=== PATIENT | female | born 1980 | race Caucasian/White ===

== ENCOUNTER 2017-07-07 10:30 | Outpatient (RCR) | payer MEDICAID, SELFPAY ==
--- NOTE | 2017-06-07 16:31 | HP.PTEVAL_ITS ---
Patient's Visit Information CELESTINO GREGORY is a 36 year old F referred to Physical Therapy by Rojelio ALEJANDRE with a diagnosis of Plantar Fascitis. Date of Evaluation: 06/07/17 Physical Therapist: Luo Argueta - Visit Plan Frequency: 2x /Week Duration: 4 Weeks Plan: Manual therapy, flexibility and US - Subjective Subjective: Patient reports that she has left plantar fascitits. She tried to ignore it and let is go but it kept getting worse. She finally made an apt to see the senior counsel commercial who has given her 3 cortisone injections and orthotics none of which have helped. The first injection lasted 1 month and the last one was 3 days of relief. She has burning pain all the time in the bottom of her heel. No radiating pain to the knee or toes. worst: 610 Agg: being on it and getting up after sitting for a long period of time. Does not wear night splints. Eases: laying down Best: 10. 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 Frustrated because her foot isn't better. did not give her any exercises. She works out at [employer] and does the TM and weights. PMHx: none Meds: inhaler, zyrtec no x-rays or MRI. Sleep: not disturbed - Objective Posture: FH, RS. Gait: slightly antalgic- decreased stance on the left LE. HR/ TR: mild discomfort with TR. Balance: SLS 10 sec. Observation: no pes planus. Palpation: tender along plantar fascia. ROM: DF: 10 degrees, PF: 60 degrees, Inver: 30 degrees, Ever: 10 degrees. Strength: Ankle: 5/5 Knee: 5/5. Special Test: Windlass Mechanism: positive. Flexibility: Gastroc/Soleus: mod Hamstring : mod - Goals Goal 1:: Patient will be I with HEP and progresion Goal Time Frame: 4-6 Weeks Goal 2:: Patinet will demo mild restriction where deficit in LE Goal Time Frame: 4-6 Weeks Goal 3:: Patient will report 0/10 for 1 week Goal Time Frame: 4-6 Weeks Goal 4:: Patient will SLS for 30 sec without LOB Goal Time Frame: 4-6 Weeks - Rehabilitation Potential Physical Therapy Diagnosis: Patient presents with hypomobility- she has decreased flexibility and increased pain along plantar fascia Rehabilitation Potential: Fair - Anticipated Interventions For the Purpose of:: To increase tolerance to activity/condition/position Therapeutic Exercise to Include: Strength training, Endurance training, Balance training, Agility training, Body mechanics, Postural training, Flexibilty training, Gait and locomotor training, Passive ROM, Active ROM For the Purpose of:: To improve muscle performance and motor function TENS: Yes Cryotherapy (ice pack, ice massage): Yes Thermo therapy (hot pack): Yes Ultrasound (thermal/non thermal): Yes For the Purpose of:: To decrease pain, To decrease swelling/inflammation Thank you for the opportunity to evaluate your patient. For Medicare and Medicare HMO plans, please review the plan of care and approve it. It will need to be FAXED BACK to us at [phone] for Medicare purposes. Please let me know if there are questions or concerns regarding this plan of care. Physician Signature: Date:
--- NOTE | 2017-07-07 10:46 | HP.PTDCSUM ---
HP - PT D/C Summary It has been my pleasure to treat CELESTINO GREGORY under orders from DR.JS RyanUPORACIO for the diagnosis of Plantar Fascitis for a total of 9 visit(s). Discharge Date: Please see the following information for a summary of their discharge status. - Subjective Subjective: Patient reports she started getting better when she was off her feet due to pneumonia. 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 -06/25. Took dog on a walk on Tuesday and then worked out on Tue and now the pain is back up. The foot was going numb when she was working out. - Pain L heel Pain Intensity (Out of 10): 3 - Objective Objective/Function: Return to MD for further evaluation secondary to subjective report - Goals Goal 1:: Patient will be I with HEP and progresion Goal Progress: Goal Met Goal 2:: Patinet will demo mild restriction where deficit in LE Goal Progress: Goal Met Goal 3:: Patient will report 0/10 for 1 week Goal Progress: Progressing Goal 4:: Patient will SLS for 30 sec without LOB Goal Progress: Goal Met - Plan Plan: Discharge - D/C Information If there are questions or concerns regarding this patient's physical therapy, please feel free to call me at [phone]. Thank you for the referral of this patient. Sincerely, Lou Argueta
== END 2017-07-07 19:00 | disposition home or self-care (01) ==
LOC: PT 10:30
PROVIDERS: Family Provider Family Medicine; PCP Family Medicine; Visit Provider Podiatrist Foot & Ankle Surgery
DX: M72.2 Plantar fascial fibromatosis (principal)
CPT/HCPCS: 97035; 97110; 97140; 97161; 97530

== ENCOUNTER 2018-02-02 10:54 | Emergency (ER) | payer MEDICAID, SELFPAY ==
[2018-02-02 10:54] VITALS: BP 119/85; PULSE 90; RESP 16; TEMP 35.6; O2SAT 99; BMI 26.6
--- NOTE | 2018-02-02 11:08 | EKG12_ITS ---
Test Reason : CHEST PRESSURE Blood Pressure : / mmHG Vent. Rate : 081 BPM Atrial Rate : 081 BPM P-R Int : 156 ms QRS Dur : 088 ms QT Int : 370 ms P-R-T Axes : 073 060 057 degrees QTc Int : 429 ms Normal sinus rhythm Normal ECG Confirmed by JANETT SULLIVAN, DARIAN ([id number]), make up editor MARICEL AGUILAR ([id number]) on 02/08/2018 9:12:44 AM Referred By: JARAD Confirmed By:DARIAN ROWLAND MD
[2018-02-02] MEDS: 0.9% Normal Saline 1,000 ML 1000 ML IV (11:34)
[2018-02-02 11:36] LABS: Absolute Lymphocyte Count 1.73 X10^3/ul (0.83-4.51); Absolute Neutrophil Count 2.8 X10^3/uL (2.0-7.7); Basophil# 0.04 X10^3/uL; Basophil% 0.7 % (0-1); Eosinophil# 0.08 X10^3/uL; Eosinophils% 1.5 % (0-5); Hemoglobin 13.2 g/dl (12.0-15.0); Lymphocyte # 1.73 X10^3/ul (4.0); Lymphocyte % 32.3 % (19-41); Mean Corpuscular Hgb 30.3 pg (27.0-32.0); Mean Platelet Vol. 9.7 fl (6.2-12.0); Monocyte# 0.71 X10^3/uL; Monocyte% 13.2 % (0-10); Neutrophil # 2.79 X10^3/uL (2.7-7.7); Neutrophil % 52.1 % (47-70); Platelet Count 194 K/mm3 (150-450); RBC Distribution Width CV 12.4 % (11.6-14.6); Red Blood Count 4.35 M/mm3 (4.2-5.4); White Blood Count 5.4 K/mm3 (4.4-11.0)
[2018-02-02 11:37] LABS: POSITIVE COUNT NO; POSITIVE DIFFERENTIAL NO; POSITIVE MORPHOLOGY NO
--- NOTE | 2018-02-02 11:40 | ED.DCSUM_ITS ---
- ER Visit Summary Date of Service: 02/02/18 Chief Complaint: [feel like I can't get enough air] History of Present Illness: The patient is a 37 F [that presents with sensation that she is not getting enough air. She denies any chest pain or dyspnea. No exertional symptoms. She has had similar symptoms on and off and has had evaluation from her primary provider. She is currently wearing a Holter monitor. She believes the symptoms may be from recently starting spironolactone that was prescribed to her off label use for acne. She has no cardiac history or risk factors. No DVT or PE history or risk factors. She overall appears well and nontoxic. No neurological symptoms or complaints. She has no other complaints.] Physical Examination: [General: The patient appears well and in no apparent distress. Patient is resting comfortably on cart. Skin: Warm, dry, no pallor noted. No rash. Head: Normocephalic, atraumatic Neck: Supple, nontender. Eye: PERRLA, EOMI ENT: Moist mucus membranes, pharynx within normal limits. Cardiovascular: Regular Rate and Rhythm, no gallups or rubs. Respiratory: Patient is in no distress, no accessory muscle use, lungs are clear to auscultation, no wheezing, rales or rhonchi Musculoskeletal: normal ROM, no deformity, no tenderness, no swelling. 2+ radial and DP pulses symmetric. GI: No tenderness to palpation, no masses appreciated. No rebound, guarding, or rigidity noted. Neurological: A&O, normal strength and sensation. Psychiatric: Cooperative] Test Results: [EKG of 81, no acute ischemic changes or arrhythmia, normal intervals, no heart blocks.] Emergency Department Course and Treatment: [She was given IV fluids here. Blood work overall unremarkable other than elevated d-dimer. I discussed CTA imaging and patient is agreeable. CTA of the chest shows no acute process. On re-evaluation at 1420 patient is resting comfortably and states she feels overall improved. Her vitals remained normal. I do not feel her presentation is consistent with ACS, PE, or dissection. Heart Score is 0. She was instructed to follow closely with her primary provider and return with any new or worsening symptoms. She will also inquire about the spironolactone she is taking. She states she has not taken a dose for several days. I instructed her to speak with her prescribing physician regarding this. Patient verbalized understanding and is agreeable. Patient discharged home in stable and improved condition.] Treatment Plan: [see above] Disposition: [discharge home, stable and improved condition] Impression: [Dyspnea, nonspecific] This note was generated with [employer] software. It may contain incorrect words, spelling, and punctuation that were not noted in review of the chart prior to signing ED Disposition - Plan for ED Patient: Disposition: Home or Assisted Living Chief Complaint: Chest Pain Instructions: ED Dyspnea Shortness of Breath Referrals: Pankaj Anaya MD [Primary Care Provider] -
--- NOTE | 2018-02-02 11:44 | ED.RN ---
ddimer 1.0 called from the lab. dr ortiz aware
[2018-02-02 11:49] LABS: Anion Gap 6 (5-15); BUN 11 mg/dL (7-18); BUN/Creat Ratio 11.1 RATIO (10-20); Calcium,Total 8.9 mg/dL (8.5-10.1); Chloride 108 mmol/L (98-107); Creatinine, Serum 0.99 mg/dL (0.55-1.02); EST Glomerular Filtration Rate 66 mL/min (>60); Est Glom Filt Rate - Afr Amer 80 mL/min (>60); Estimated Creatinine Clearance 79.73 ml/min; Glucose 71 mg/dL (74-106); Sodium Level 140 mmol/L (136-145)
--- NOTE | 2018-02-02 11:54 | CT_ITS ---
STUDY: CTA CHEST REASON FOR EXAM: Female, 37 years old. Chest pressure and shortness of breath. Elevated d-dimer. RADIATION DOSAGE (If Supplied By Facility): CTDIvol = ( 19.75 ) mGy, DLP = ( 483.90 ) mGycm TECHNIQUE: The examination was performed with the intravenous administration of 100 ml of Isovue 370 contrast material. Post-processing of the angiographic images was performed, with multiplanar reformation and 3D reconstruction. Individualized dose optimization techniques were used for this CT. COMPARISON: None. FINDINGS: Normal enhancement of the main pulmonary artery and right and left pulmonary arteries. Normal enhancement of the bilateral peripheral pulmonary arteries. There is no demonstrated pulmonary embolism. Normal thoracic aorta and visualized great vessels. There is no demonstrated aortic dissection. Normal heart and pericardium. Normal mediastinum. Normal hilar regions. Normal visualized trachea and bronchi. The lungs are well expanded. Minimal degree of increased markings along the dependent portions of both lower lobes suggestive of atelectasis. Normal pleura. Normal chest wall structures. Normal osseous structures. Small hiatal hernia. CT/CTA Chest W/WO Contrast IMPRESSION: Normal CTA chest examination, without a demonstrated pulmonary embolism or arterial dissection. Findings suggestive of minimal bibasilar atelectasis. Electronically Signed: Maurice Dover MD at 13:53 EDT Tel [phone], Service support ,
[2018-02-02 12:41] LABS: Internal QC Validated? YES +Cl - CLEAR BKGD; Pregnancy, Urine Negative Negative
[2018-02-02 14:22] VITALS: BP 124/87; PULSE 89; RESP 18; O2SAT 97
[2018-02-02 14:43] VITALS: BP 121/80; PULSE 70; RESP 16; O2SAT 98
== END 2018-02-02 14:44 | disposition home or self-care (01) ==
PROVIDERS: Emergency Provider Emergency Medicine; Family Provider Family Medicine; PCP Family Medicine
DX: R06.00 Dyspnea, unspecified (principal); R74.8 Abnormal levels of other serum enzymes; J45.909 Unspecified asthma, uncomplicated; F32.9 Major depressive disorder, single episode, unspecified; L70.9 Acne, unspecified; E66.9 Obesity, unspecified; Z79.899 Other long term (current) drug therapy
CPT/HCPCS: 71275; 80048; 81025; 84484; 85025; 85379; 93005; 96360; 99284; J7030; Q9967; A4216

== ENCOUNTER 2018-07-24 08:56 | Emergency (ER) | payer MEDICAID, SELFPAY ==
[2018-07-24 08:58] VITALS: BP 118/80; PULSE 104; RESP 18; TEMP 36.9; O2SAT 95; BMI 24.5
[2018-07-24 09:09] VITALS: BP 144/97; O2SAT 96
--- NOTE | 2018-07-24 09:18 | ED.VISSUMM ---
- ER Visit Summary Date of Service: 07/24/18 Chief Complaint: Cough History of Present Illness: The patient is a 38 F who presents emergency department shortness of breath and cough. Patient states that on Tuesday she was diagnosed with bronchitis through her primary care physician. She was placed on doxycycline tapering dose of prednisone and Tylenol with codeine. In addition to that therapy she is also using her inhalers consisting of albuterol and Brio. The patient states that she feels worse. She notes generalized myalgias. Continued cough and shortness of breath. Cough is been nonproductive. No known fevers. She has a history of asthma and depression. Physical Examination: Afebrile vital signs are stable Gen: Well-nourished well-developed Head: Normocephalic atraumatic Eyes: Perrl EOMI ENT: TMs clear nasal congestion and rhinorrhea moist mucous membranes Neck: Supple no lymphadenopathy no JVD nontender CVS: Regular rate rhythm no murmurs normal S1-S2 Respiratory: No distress clear to auscultation bilaterally chest nontender Abdomen: Soft nontender nondistended normal bowel sounds no masses Back: Nontender Extremity: Nontender no edema Skin: Normal color no rash Neuro: alert orientated ?3 CN II-XII intact normal strength sensation reflexes gait cerebellar Psych: Normal affect normal mood Test Results: Chest x-ray and influenza swab were obtained. Chest x-ray was negative for infiltrate. Influenza was positive for a Emergency Department Course and Treatment: Patient is out of the window for Tamiflu. I would recommend continued supportive care fever control and oral hydration. Impression: 1. Influenza A This note was generated with [employer] dictation software. It may contain incorrect words, spelling, and punctuation that were not noted in review of the chart prior to signing ED Disposition - Plan for ED Patient: Disposition: Home or Assisted Living Instructions: ED Flu Referrals: Pankaj Anaya MD [Primary Care Provider] - As Needed
--- NOTE | 2018-07-24 09:43 | RAD_ITS ---
STUDY: X-RAY CHEST REASON FOR EXAM: Female, 38 years old. Asthma. 4 day history of diagnosis of bronchitis. TECHNIQUE: PA and lateral views of the chest. COMPARISON: None. FINDINGS: Hyperinflation. Scattered calcified granulomas. There is no demonstrated pleural abnormality. Normal size heart. Calcified bilateral hilar lymph nodes. Normal visualized pulmonary arteries. Normal visualized aortic arch and descending thoracic aorta. Normal visualized thoracic spine. Normal visualized ribs, clavicles, and shoulders. There is no demonstrated abnormality of the visualized soft tissue structures of the upper abdomen. RAD/Chest PA and Lateral IMPRESSION: Hyperinflation. The lungs are clear. Electronically Signed: Maurice Dover, at 10:22 EDT , Service support ,
[2018-07-24 10:19] VITALS: BP 143/95; PULSE 87; RESP 17; O2SAT 96
--- NOTE | 2018-07-24 10:20 | ED.RN ---
DISCHARGE INSTRUCTIONS GIVEN TO AND REVIEWED WITH PATIENT, PATIENT DENIES QUESTIONS OR CONCERNS AND VOICES UNDERSTANDING OF DISCHARGE INSTRUCTIONS. PT AMBULATES OUT OF ROOM WITHOUT DIFFICULTY.
== END 2018-07-24 10:20 | disposition home or self-care (01) ==
PROVIDERS: Emergency Provider Emergency Medicine; Family Provider Family Medicine; PCP Family Medicine
DX: J11.1 Influenza due to unidentified influenza virus with other respiratory manifestations (principal); J45.909 Unspecified asthma, uncomplicated; F32.9 Major depressive disorder, single episode, unspecified; Z79.899 Other long term (current) drug therapy
CPT/HCPCS: 71046; 87804; 99282

== ENCOUNTER 2019-03-12 17:01 | Emergency (ER) | payer MEDICAID, SELFPAY ==
[2019-03-12 17:02] VITALS: BP 144/98; PULSE 101; RESP 18; TEMP 36.8; O2SAT 97; BMI 21.4
[2019-03-12 17:15] VITALS: BP 135/106; PULSE 113; RESP 16; TEMP 36.8; O2SAT 98
--- NOTE | 2019-03-12 17:29 | CT_ITS ---
STUDY: CT ABDOMEN AND PELVIS WITH CONTRAST REASON FOR EXAM: Female, 38 years old. Epigastric pain RADIATION DOSAGE (If Supplied By Facility): CTDIvol = ( 10.97 ) mGy, DLP = ( 435.97 ) mGycm TECHNIQUE: CT images were obtained from the dome of the diaphragm to the symphysis pubis without oral contrast. IV/Oral Isovue 300 100ml was administered. Sagittal and coronal images were reconstructed. Individualized dose optimization techniques were used for this CT. COMPARISON: None. FINDINGS: The visualized lung bases are unremarkable. The visualized portions of the heart are within normal limits. Normal liver. Normal gallbladder and extrahepatic biliary system. Normal spleen. Normal pancreas. Normal bilateral adrenal glands. Normal right kidney. Normal left kidney. Normal visualized stomach. Normal small intestine. Normal colon. The appendix is visualized and appears normal. Normal abdominal aorta. Normal inferior vena cava. Normal retroperitoneum. Normal urinary bladder. Uterus is resected. Normal abdominal wall. Normal osseous structures. There is a bone island in the inferior L3. CT/Abdomen/Pelvis WITH Contrast IMPRESSION: Normal enhanced CT of the abdomen and pelvis. Electronically Signed: Rahul Neely, at 20:51 EDT Tel , Service support ,
--- NOTE | 2019-03-12 17:31 | ED.DCSUM_ITS ---
History of Present Illness Chief Complaint: Abd Pain Informant: Patient Onset: Days - 3 Narrative: Presents with abdominal pain started Alex evening. States started on left lower side however radiated up to her mid abdomen and epigastric region over the last couple days. Nausea without vomiting. She had one loose stool yesterday. No bloody stools. States has chills. History of cholecystectomy year ago at [facility]. History of hysterectomy. She is on reflux medications. No previous similar symptoms in the past. No urinary symptoms. Prior similar symptoms: No Past Medical History - Allergies and Home Meds Allergies/Adverse Reactions: Allergies cefaclor Allergy (Verified 03/12/19 17:05) Rash Sulfa (Sulfonamide Antibiotics) Adverse Reaction (Verified 03/12/19 17:05) Nausea/Vom/Diarrhea Primary Care Physician: Pankaj Anaya MD [Primary Care Provider] - Smoking Status: Never smoker Review of Systems General: Reports: Chills. Denies: Fever, Sweats Eyes: Denies: Visual changes - bilaterally, Diplopia ENT: Denies: Rhinorrhea, Sore throat Cardiovascular: Denies: Chest pain, Palpitations Respiratory: Denies: Dyspnea, Cough, Dyspnea on exertion Gastrointestinal: Denies: Abdominal pain, Nausea, Vomiting, Diarrhea, Melena, Hematochezia Genitourinary: Denies: Dysuria, Hematuria, Frequency Musculoskeletal: Denies: Back pain, Extremity Pain Skin: Denies: Rash, Wounds Neurological: Denies: Headache, Weakness, Numbness Physical Exam Vital Signs/Narrative: Vital Signs Temp Pulse Resp BP Pulse Ox 03/12/19 17:15 98.3 F 113 H 16 135/106 H 98 03/12/19 17:02 98.3 F 101 H 18 144/98 H 97 Inital Vital Signs reviewed: Yes General: Well nourished, Well developed, - - Uncomfortable Head: Normocephalic, Atraumatic Eyes: Perrl, EOMI ENT: Moist mucous membranes, No rhinorrhea Neck: Supple, Nontender Cardiovascular: Regular rate, Regular rhythm, No murmurs Respiratory: No distress, CTA bilaterally, Chest nontender Abdomen: Soft, Nondistended, Normal bowel sounds, - - Tender palpation epigastric along with suprapubic along with mild left lower quadrant there is no guarding or rebound. Back: Nontender, Normal Inspection Extremities: Nontender, No edema Skin: Normal color, No rash Neurological: Alert, Oriented x3, Cranial nerves II-XII grossly intact, Normal Strength, Normal Sensation Psychological: Normal affect, Normal Mood Diagnostic/Tx/Re-eval Abnormal Lab Results 03/12/19 03/12/19 03/12/19 17:32 17:32 17:45 WBC 6.2 RBC 4.53 Hgb 13.5 Hct 42.4 MCV 93.6 MCH 29.8 MCHC 31.8 L RDW Std Deviation 41.0 RDW Coeff of Samina 11.9 Plt Count 189 MPV 10.2 Immature Gran % (Auto) 0.300 Neut % (Auto) 54.3 Lymph % (Auto) 34.1 [place] % (Auto) 9.3 Eos % (Auto) 1.4 Baso % (Auto) 0.6 Absolute Neuts (auto) 3.4 Absolute Lymphs (auto) 2.13 Nucleated RBC % 0 Sodium 141 Potassium 3.8 Chloride 109 H Carbon Dioxide 28.0 Anion Gap 4 L BUN 8 Creatinine 0.86 Estim Creat Clear Calc 90.29 Est GFR (MDRD) Af Amer 94 Est GFR (MDRD) Non-Af 77 BUN/Creatinine Ratio 9.3 L Glucose 89 Calcium 8.9 Total Bilirubin 0.30 AST 11 L ALT 17 Alkaline Phosphatase 66 Total Protein 7.0 Albumin 3.6 Globulin 3.4 Albumin/Globulin Ratio 1.1 Lipase 100 Urine Color Yellow Urine Clarity Clear Urine pH 6.0 Ur Specific [place] 1.010 Urine Protein Negative Urine Glucose (UA) Normal Urine Ketones Negative Urine Occult Blood Negative Urine Nitrite Negative Urine Bilirubin Negative Urine Urobilinogen Normal Ur Leukocyte Esterase Negative Urine RBC 0 SEEN Urine WBC 0 SEEN Ur Squamous Epith Cells 0-5 SEEN Urine Bacteria 0 SEEN Urine Mucus 0 SEEN Clinical Impression(s) from Imaging Studies Abdomen/Pelvis CT 03/12/19 17:29 IMPRESSION: Normal enhanced CT of the abdomen and pelvis. Electronically Signed: Rahul Neely, at 20:51 EDT Tel , Service support , - Medical Decision Making Patient diffuse tenderness more lower in epigastric region. Treated with Zofran fentanyl IV fluids. Require additional fentanyl during work-up. Abdominal labs and urine all normal. Contrast CT abdomen pelvis also negative. Reevaluation was still uncomfortable I treated her with Levsin and GI cocktail which improved her symptoms. She denies any melena. She reports endoscopies have been performed upper and lower a couple years ago. She is on reflux medicines. We will add Carafate for 2 weeks. Will use as needed Levsin. She will follow-up as an outpatient. All questions were answered. ED Disposition - Plan for ED Patient: Disposition: Home or Assisted Living Diagnosis: Gastritis, Abdominal pain Instructions: ABDOMINAL PAIN, Unknown Cause, (Female), GASTRITIS vs. ULCER Prescriptions: Sucralfate [Carafate] 1 gm PO 4X/DAY #60 tablet Hyoscyamine Sulfate 0.125 mg SL Q6H PRN PRN #12 tab.subl PRN Reason: abdominal pain Referrals: Pankaj Anaya MD [Primary Care Provider] - 3-5 Days if not improving Additional Instructions: Normal abdominal labs. Normal CT scan abdomen pelvis with IV and oral contrast. Take medications as prescribed. Follow-up with your doctor.
[2019-03-12] MEDS: 0.9% Normal Saline 1,000 ML 125 ML IV (17:42)
[2019-03-12] MEDS: Ondansetron 4 MG/2 ML Vial IV (17:42)
[2019-03-12] MEDS: fentaNYL 100 MCG/2 ML Ampul 25 MCG IV ×2 (17:43→19:07)
[2019-03-12 18:17] LABS: ALB/GLOB Ratio 1.1 RATIO (0.9-2.4); AST(SGOT) 11 U/L (15-37); Alanine Aminotransfer ALT/SGPT 17 U/L (13-56); Albumin, Serum 3.6 g/dL (3.2-5.0); Alkaline Phosphatase 66 U/L (45-117); Anion Gap 4 (5-15); BUN 8 mg/dL (7-18); BUN/Creat Ratio 9.3 RATIO (10-20); Calcium,Total 8.9 mg/dL (8.5-10.1); Chloride 109 mmol/L (98-107); Creatinine, Serum 0.86 mg/dL (0.55-1.02); EST Glomerular Filtration Rate 77 mL/min (>60); Est Glom Filt Rate - Afr Amer 94 mL/min (>60); Estimated Creatinine Clearance 90.29 ml/min; Globulin 3.4 g/dL (2.2-4.2); Glucose 89 mg/dL (74-106); Lipase 100 U/L (73-393); Potassium 3.8 mmol/L (3.5-5.1); Sodium Level 141 mmol/L (136-145)
[2019-03-12 18:18] LABS: Absolute Lymphocyte Count 2.13 X10^3/uL (0.83-4.51); Absolute Neutrophil Count 3.4 X10^3/uL (2.0-7.7); Basophil# 0.04 X10^3/uL; Basophil% 0.6 % (0-1); Eosinophil# 0.09 X10^3/uL; Eosinophils% 1.4 % (0-5); Hematocrit 42.4 % (37-47); Hemoglobin 13.5 g/dL (12.0-15.0); Lymphocyte # 2.13 X10^3/ul (4.0); Lymphocyte % 34.1 % (19-41); Mean Corp Hgb Conc 31.8 g/dL (32-36); Mean Corpuscular Hgb 29.8 pg (27.0-32.0); Mean Corpuscular Volume 93.6 fL (81-99); Mean Platelet Vol. 10.2 fl (6.2-12.0); Monocyte# 0.58 X10^3/uL; Monocyte% 9.3 % (0-10); NRBC Flagged by Analyzer 0 % (0-5); Neutrophil # 3.38 X10^3/uL (2.7-7.7); Neutrophil % 54.3 % (47-70); Platelet Count 189 K/mm3 (150-450); RBC Distribution Width CV 11.9 % (11.6-14.6); Red Blood Count 4.53 M/mm3 (4.2-5.4); White Blood Count 6.2 K/mm3 (4.4-11.0)
[2019-03-12 19:08] LABS: Bacteria 0 SEEN /hpf (None Seen); Mucous, Urine 0 SEEN /hpf (<or=2+); Red Blood Cells-Urine 0 SEEN /hpf (0-5); White Blood Cells 0 SEEN /hpf (0-5)
[2019-03-12 19:09] VITALS: RESP 16
[2019-03-12 19:18] LABS: Color, Urine Yellow (Yellow); Glucose, Dipstick Normal (Normal); Ketone-Dipstick Negative (Negative); Leukocyte Esterase-Dipstick Negative /ul (Negative); Nitrite-Dipstick Negative (Negative); Occult Blood-Urine Negative /ul (Negative); Protein-Dipstick Negative (Negative); Urine Bilirubin Dipstick Negative (Negative); Urine Clarity Clear (Clear); Urine Urobilinogen Normal (Normal)
[2019-03-12 19:28] LABS: Squamous Epithelial Cells - UA 0-5 SEEN /hpf (5-10)
[2019-03-12] MEDS: Mag Hydrox/Al Hydrox/Simeth 30 ML UDC PO (21:26)
[2019-03-12 21:28] VITALS: BP 118/85; PULSE 78; RESP 16; O2SAT 98
[2019-03-12] MEDS: Hyoscyamine Sulfate 0.125 MG Tablet SUBLINGUAL (21:34)
[2019-03-12 22:15] VITALS: RESP 16
== END 2019-03-12 22:15 | disposition home or self-care (01) ==
PROVIDERS: Emergency Provider Emergency Medicine; Family Provider Family Medicine; PCP Family Medicine
DX: K29.70 Gastritis, unspecified, without bleeding (principal)
CPT/HCPCS: 74177; 80053; 81001; 83690; 85025; 96361; 96374; 96375; 96376; 99284; J7030; Q9967; A4216; J2405

== ENCOUNTER 2019-11-08 14:46 | Emergency (ER) | payer MEDICAID, SELFPAY ==
[2019-11-08 14:48] VITALS: BP 120/88; PULSE 90; PULSE 92; RESP 17; RESP 18; TEMP 36.9; O2SAT 97; O2SAT 98; BMI 24.2
[2019-11-08 15:05] VITALS: BP 123/85; PULSE 98; RESP 16; O2SAT 96
--- NOTE | 2019-11-08 15:05 | EKG12_ITS ---
Test Reason : NEURO SX Blood Pressure : / mmHG Vent. Rate : 092 BPM Atrial Rate : 092 BPM P-R Int : 148 ms QRS Dur : 084 ms QT Int : 374 ms P-R-T Axes : 063 049 050 degrees QTc Int : 462 ms Normal sinus rhythm Normal ECG Confirmed by LILIAM SULLIVAN, CLEM ([id number]), story editor TATUM IRIZARRY ([id number]) on 11/13/2019 11:13:04 AM Referred By: MICHELLE Confirmed By:CLEM RICKETTS MD
--- NOTE | 2019-11-08 15:05 | MRI_ITS ---
STUDY: MRI BRAIN WITHOUT CONTRAST REASON FOR EXAM: Female, 39 years old. VERTIGO, LT ARM TINGLING, HEAD PRESSURE TECHNIQUE: Standardized multiplanar fat and water weighted pulse sequences were obtained. COMPARISON: None. FINDINGS: Normal size of the ventricles and extra-axial spaces for the patient''s age. Normal white matter tracts of the supratentorial brain. There is no evidence for recent intracranial ischemia or other cause of cytotoxic edema on diffusion weighted imaging (DWI). Normal T2* images of the brain without demonstrated susceptibility artifact. There is no demonstrated hemosiderin stain. Normal bilateral basal ganglia. Normal thalami. There is no extra-axial fluid accumulation. Normal flow voids within the major intracranial circulation suggesting patency by spin echo criteria. Normal sella turcica, pituitary gland, infundibular stalk, optic chiasm and hypothalamus. Normal tectal plate and pineal gland. Normal midbrain, mamie and medulla. Normal cerebellum. Normal basal cisterns. Normal bilateral temporal bones. Normal bilateral internal auditory canals. No demonstrated orbital abnormality, within the constraints of a routine brain study. Normal visualized paranasal sinuses. Normal calvarium and skull base. Normal visualized soft tissue structures. Normal visualized upper cervical spine. MRI/Brain without Contrast IMPRESSION: Normal unenhanced MRI of the brain. Electronically Signed: Alfred Sawant MD at 16:27 EDT Tel , Service support ,
[2019-11-08 15:06] VITALS: BMI 24.0
--- NOTE | 2019-11-08 15:07 | CT_ITS ---
STUDY: CTA HEAD AND NECK WITH CONTRAST REASON FOR EXAM: Female, 39 years old. ACUTE NEURO DEFICIT, CONCERN FOR STROKE, DIZZINESS RADIATION DOSAGE (If Supplied By Facility): CTDIvol = ( 27.58 ) mGy, DLP = ( 1365.36 ) mGycm TECHNIQUE: CT angiography was performed with a multi-detector CT scanner. Data acquisition was obtained from the skull base through the vertex following intravenous administration of Isovue 370 100ml. MIP images were reconstructed from the axial data set. Post-processing of the angiographic images was performed, with multiplanar reformation and 3D reconstruction. Individualized dose optimization techniques were used for this CT. COMPARISON: No relevant priors. FINDINGS: Normal bilateral petrous carotid arteries. Normal right cavernous carotid artery with a normal supraclinoid bifurcation. Normal left cavernous carotid artery with a normal supraclinoid bifurcation. Normal right A1 segments of the anterior cerebral artery. Normal left A1 segments of the anterior cerebral artery. Normal intact anterior communicating artery (ACOM). Normal bilateral A2 segments of the anterior cerebral arteries. Normal right M1 and M2 segments of the middle cerebral arteries, with a normal M1 bifurcation. Normal left M1 and M2 segments of the middle cerebral arteries, with a normal M1 bifurcation. Normal right posterior communicating artery (PCOM). Normal left posterior communicating artery (PCOM). Normal bilateral vertebral arteries. Normal basilar artery with a normal basilar bifurcation. The visualized bilateral superior cerebellar (SCA) arteries are normal. Normal bilateral P1, P2 and visualized P3 segments of the posterior cerebral arteries. There is no demonstrated aneurysm of the alutiiq of [place]. There is no demonstrated abnormality of the visualized brain. AORTIC ARCH: Normal visualized aortic arch. Normal origins of the brachiocephalic, left common carotid, and left subclavian arteries. RIGHT CAROTID ARTERIES: Normal right common carotid artery (CCA). Normal right common carotid bulb. Normal origin of the right internal carotid (ICA) artery without a hemodynamically significant stenosis. Normal visualized cervical portion of the right internal carotid artery. Normal origin of the right external carotid artery (ECA). LEFT CAROTID ARTERIES: Normal left common carotid artery (CCA). Normal left common carotid bulb. Normal origin of the left internal carotid (ICA) artery without a hemodynamically significant stenosis. Normal visualized cervical portion of the left internal carotid artery. Normal origin of the left external carotid artery (ECA). VERTEBRAL ARTERIES: Normal bilateral vertebral arteries. CT/CTA Head AND Neck W/ Contrast IMPRESSION: Normal CTA Head and neck with contrast. Electronically Signed: Alfred Sawant MD at 16:34 EDT Tel , Service support ,
[2019-11-08] MEDS: LORazepam 2 MG/ML Syringe 1 MG IV (15:14)
--- NOTE | 2019-11-08 15:26 | ED.RN ---
mri hx filled out. nih a 1 for paresthesia lt arm and leg. no other deficit obs.
[2019-11-08 15:40] LABS: Absolute Lymphocyte Count 1.62 X10^3/uL (0.83-4.51); Absolute Neutrophil Count 3.6 X10^3/uL (2.0-7.7); Basophil# 0.07 X10^3/uL; Eosinophil# 1.11 X10^3/uL; Eosinophils% 15.7 % (0-5); Hemoglobin 13.2 g/dL (12.0-15.0); Lymphocyte # 1.62 X10^3/ul (4.0); Lymphocyte % 22.9 % (19-41); Mean Corp Hgb Conc 32.2 g/dL (32-36); Mean Corpuscular Hgb 31.4 pg (27.0-32.0); Mean Corpuscular Volume 97.6 fL (81-99); Mean Platelet Vol. 9.6 fl (6.2-12.0); Monocyte# 0.69 X10^3/uL; Monocyte% 9.8 % (0-10); NRBC Flagged by Analyzer 0 % (0-5); Neutrophil # 3.55 X10^3/uL (2.7-7.7); Neutrophil % 50.3 % (47-70); Platelet Count 195 K/mm3 (150-450); RBC Distribution Width CV 12.3 % (11.6-14.6); RBC Distribution Width SD 43.8 fl (35.1-43.9); White Blood Count 7.1 K/mm3 (4.4-11.0)
[2019-11-08 15:46] LABS: International Normalized Ratio 1.1
[2019-11-08 15:48] LABS: Partial Thromboplast Time 27.8 Seconds (24.1-36.2)
[2019-11-08 15:57] LABS: Anion Gap 5 (5-15); BUN 19 mg/dL (7-18); BUN/Creat Ratio 20.5 RATIO (10-20); Calcium,Total 8.7 mg/dL (8.5-10.1); Chloride 105 mmol/L (98-107); Creatinine, Serum 0.93 mg/dL (0.55-1.02); EST Glomerular Filtration Rate 71 mL/min (>60); Est Glom Filt Rate - Afr Amer 86 mL/min (>60); Estimated Creatinine Clearance 83.19 ml/min; Glucose 107 mg/dL (74-106); Sodium Level 138 mmol/L (136-145)
[2019-11-08 16:05] VITALS: BP 116/78; PULSE 91; RESP 16; O2SAT 96
[2019-11-08 16:30] VITALS: BP 116/78; PULSE 95; RESP 16; O2SAT 95
[2019-11-08 16:38] LABS: Bacteria 0 SEEN /hpf (None Seen); Mucous, Urine 0 SEEN /hpf (<or=2+)
[2019-11-08 16:40] LABS: Color, Urine Yellow (Yellow); Glucose, Dipstick Normal (Normal); Ketone-Dipstick Negative (Negative); Leukocyte Esterase-Dipstick Negative /ul (Negative); Nitrite-Dipstick Negative (Negative); Occult Blood-Urine Negative /ul (Negative); Protein-Dipstick Negative (Negative); Urine Bilirubin Dipstick Negative (Negative); Urine Clarity Sl. Cloudy (Clear); Urine Urobilinogen Normal (Normal)
[2019-11-08 16:41] LABS: Bedside Glucose 90 mg/dL (70-110)
[2019-11-08 16:59] LABS: Squamous Epithelial Cells - UA 0-5 SEEN /hpf (5-10)
[2019-11-08 17:01] LABS: Red Blood Cells-Urine 0-5 SEEN /hpf (0-5)
[2019-11-08 17:02] LABS: White Blood Cells 0-5 SEEN /hpf (0-5)
--- NOTE | 2019-11-08 17:09 | ED.VISSUMM ---
- ER Visit Summary Date of Service: 11/08/19 Chief Complaint: Vertigo and left arm numbness History of Present Illness: The patient is a [address] Vincent Ruiz. She reports that she was fine when she went to bed last night. However, 730 this morning she woke up with double vision and vertigo. This lasted approximately 2-1/2 hours and then resolved. She denies any ringing or roaring in her ears. No ear pain. No change in her hearing. No difficulty talking. No slurred speech. Patient reports that approximate 1230 she noticed that her left arm and left leg felt weird. She denies any other neurologic symptoms. She questions if this may be due to changing the dose of her duloxetine. Physical Examination: Vitals: Stable. Afebrile. General: Well-nourished and well-developed. Head: Normocephalic atraumatic. Neck: Supple, no lymphadenopathy. No JVD. Nontender. Cardiovascular: Regular rate and rhythm. No murmurs. Respiratory: No respiratory distress. Clear to auscultation bilaterally. Abdominal: Soft, nontender, nondistended, normal bowel sounds. No guarding, rebound, or peritoneal signs. Back: Nontender. Extremities: Nontender, no edema. Skin: Normal color, no rash. Neurologic: Alert and oriented ?3. Cranial nerves II through XII are intact. Normal strength. Subjective decrease sensation to light touch left arm and left leg giving an NIH scale of 1. Psych: Normal affect. Test Results: EKG is sinus at [address] changes and artifact. Troponin is negative. UA is normal. Coags are normal. Chem-7 shows a BUN of 19 and glucose 107. CBC shows eosinophils of 16. Clinical Impression(s) from Imaging Studies Brain MRI 11/08/19 15:05 IMPRESSION: Normal unenhanced MRI of the brain. Electronically Signed: Alfred Sawant MD at 16:27 EDT Tel , Service support , Head/Neck CTA 11/08/19 15:07 IMPRESSION: Normal CTA Head and neck with contrast. Electronically Signed: Alfred Sawant MD at 16:34 EDT Tel , Service support , Emergency Department Course and Treatment: Patient's NIH scale is 1 and her symptoms have improved. Also she woke with symptoms. She is not a TPA candidate. Treatment Plan: With a normal MRI I feel the patient is suitable candidate for further outpatient evaluation. She will be discharged with Antivert and Zofran in case the vertigo returns. She will be discharged with instructions to follow-up with Dr. Borjas as soon as possible. Return to the emergency department for any worsening symptoms. Disposition: To home in improved and stable condition. Impression: 1 1. Vertigo, resolved. 2. Paresthesias left upper/lower extremities, uncertain cause. This note was generated with [employer] dictation software. It may contain incorrect words, spelling, and punctuation that were not noted in review of the chart prior to signing ED Disposition - Plan for ED Patient: Disposition: Home or Assisted Living Instructions: ED Dizziness [facility] Prescriptions: Meclizine HCl [Antivert] 25 mg PO 4X/DAY PRN PRN #20 tab PRN Reason: Dizziness Prescription Printed Ondansetron [Zofran Odt] 4 mg PO Q8H PRN PRN #10 tab PRN Reason: Nausea Prescription Printed Referrals: Eric Richmond MD [STAFF PHYSICIAN] - 5-7 Days Pankaj Anaya MD [Primary Care Provider] -
[2019-11-08 18:28] VITALS: BP 124/98; PULSE 92; RESP 16; O2SAT 95
== END 2019-11-08 18:29 | disposition home or self-care (01) ==
PROVIDERS: Emergency Provider Emergency Medicine; PCP Family Medicine
DX: R42 Dizziness and giddiness (principal); H53.2 Diplopia; R20.0 Anesthesia of skin; J45.909 Unspecified asthma, uncomplicated; F32.9 Major depressive disorder, single episode, unspecified; Z79.899 Other long term (current) drug therapy
CPT/HCPCS: 70496; 70498; 70551; 80048; 81001; 82962; 84484; 85025; 85610; 85730; 93005; 96374; 99285; Q9967; A4216

== ENCOUNTER 2020-01-07 02:13 | Observation (INO) | payer MEDICAID, SELFPAY ==
[2020-01-07] VITALS (14 sets, daily range): BP systolic 115–141; BP diastolic 67–99; PULSE 87–107; RESP 16–21; TEMP 36.2–37.1; O2SAT 94–100; BMI 24.5; BMI 23.6
--- NOTE | 2020-01-07 02:46 | EKG12_ITS ---
Test Reason : OD Blood Pressure : / mmHG Vent. Rate : 080 BPM Atrial Rate : 080 BPM P-R Int : 160 ms QRS Dur : 092 ms QT Int : 406 ms P-R-T Axes : 070 071 056 degrees QTc Int : 468 ms Normal sinus rhythm Normal ECG When compared with ECG of 07-JAN-2020 03:06, No significant change was found Confirmed by BRIGITTE LU ([id number]), script editor ROSARIO MURRAY ([id number]) on 01/10/2020 9:12:33 AM Referred By: MAX Confirmed By:BRIGITTE LU
[2020-01-07 03:01] LABS: Absolute Lymphocyte Count 2.01 X10^3/uL (0.83-4.51); Absolute Neutrophil Count 3.9 X10^3/uL (2.0-7.7); Basophil# 0.06 X10^3/uL; Basophil% 0.9 % (0-1); Eosinophil# 0.19 X10^3/uL; Eosinophils% 2.7 % (0-5); Hematocrit 41.2 % (37-47); Hemoglobin 13.7 g/dL (12.0-15.0); Lymphocyte # 2.01 X10^3/ul (4.0); Mean Corp Hgb Conc 33.3 g/dL (32-36); Mean Corpuscular Hgb 31.8 pg (27.0-32.0); Mean Corpuscular Volume 95.6 fL (81-99); Mean Platelet Vol. 9.3 fl (6.2-12.0); Monocyte# 0.73 X10^3/uL; Monocyte% 10.5 % (0-10); NRBC Flagged by Analyzer 0 % (0-5); Neutrophil # 3.91 X10^3/uL (2.7-7.7); Neutrophil % 56.6 % (47-70); Platelet Count 202 K/mm3 (150-450); RBC Distribution Width CV 12.1 % (11.6-14.6); RBC Distribution Width SD 41.9 fl (35.1-43.9); Red Blood Count 4.31 M/mm3 (4.2-5.4); White Blood Count 6.9 K/mm3 (4.4-11.0)
--- NOTE | 2020-01-07 03:10 | RAD_ITS ---
STUDY: X-RAY CHEST REASON FOR EXAM: Female, 39 years old. PT GOT IN TO A DOMESTIC WITH HER AND SWALLOWED @ 14 TABLETS OF MIRTAZAPINE. PT AROUSABLE,BUT FALLS BACK TO SLEEP.ABRASION ON R ARM TECHNIQUE: AP COMPARISON: 07/24/2018. FINDINGS: The lungs are clear and expanded. There is no demonstrated pleural abnormality. Normal size heart. Normal mediastinum and nesha. Normal visualized pulmonary arteries. Normal visualized aortic arch and descending thoracic aorta. Normal visualized thoracic spine. Normal visualized ribs, clavicles, and shoulders. There is no demonstrated abnormality of the visualized soft tissue structures of the upper abdomen. RAD/Chest 1 View (Portable) IMPRESSION: Negative x-ray examination of the chest. Electronically Signed: Gorge Salter, at 3:28 EDT Tel , Service support ,
[2020-01-07 03:13] LABS: Internal QC Validated? YES +Cl - CLEAR BKGD; Pregnancy, Serum, hCG Quali. NEGATIVE Negative
--- NOTE | 2020-01-07 03:14 | ED.VISSUMM ---
- ER Visit Summary Date of Service: 01/07/20 Chief Complaint: Overdose History of Present Illness: The patient is a 39 F who presents with an overdose of Remeron that occurred tonight. Patient states she took a handful of Remeron 15 mg tablets. EMS estimated that the patient took approximately 15 Remeron tablets. Patient denies any suicidal ideations at the present time. Patient states she got into an argument with her which made her take the pills. Patient denies any nausea or vomiting. Patient admits to subjective chills. Patient did not denies any chest pain or shortness of breath. Physical Examination: Vital signs are stable. Patient is afebrile. Patient is in no acute distress. Patient is sleeping on examination but easily arousable. Oral mucosa is pink and moist. Neck is supple. Trachea is midline. There is no JVD. Heart was regular rate and rhythm. Lungs are clear and equal bilaterally. Abdomen is soft. Bowel sounds are normal. There is no tenderness. Cranial nerves II through XII are intact. There are no focal motor or sensory deficits noted. Extremities are intact. There is no calf tenderness or edema. Test Results: EKG showed sinus rhythm with a rate of 81. There are no acute ST or T wave changes. QTC was 471. CBC and comprehensive metabolic profile within normal limits. Serum alcohol level was normal. Acetaminophen level was normal at 8.4. Salicylate level was normal at less than 1.7. Urine tox urine was positive for MDMA. Serum hCG was negative. Chest x-ray does not show any acute cardiopulmonary process. This was interpreted by the radiologist and reviewed by myself. Emergency Department Course and Treatment: Patient was observed in the emergency department. Patient remained somnolent but easily awoken to verbal stimuli. Case was discussed with poison control. They recommended obtaining EKG, acetaminophen level, salicylate level, tox screen, and basic labs. They did not recommend lavage or charcoal. They also reported that the half-life is approximately 36 to 40 hours. Case was discussed with the hospitalist. He will admit the patient to his service. Disposition: Admit to hospital Impression: 1. Remeron overdose This note was generated with [employer] dictation software. It may contain incorrect words, spelling, and punctuation that were not noted in review of the chart prior to signing ED Disposition - Plan for ED Patient: Disposition: Acute Care Hospital [facility] Diagnosis: Sedative overdose Referrals: Pankaj Anaya MD [Primary Care Provider] -
[2020-01-07 03:16] LABS: ALB/GLOB Ratio 1.1 RATIO (0.9-2.4); AST(SGOT) 14 U/L (15-37); Alanine Aminotransfer ALT/SGPT 24 U/L (13-56); Albumin, Serum 3.6 g/dL (3.2-5.0); Alkaline Phosphatase 66 U/L (45-117); Anion Gap 3 (5-15); BUN 14 mg/dL (7-18); BUN/Creat Ratio 16.1 RATIO (10-20); Calcium,Total 8.5 mg/dL (8.5-10.1); Chloride 109 mmol/L (98-107); Creatinine, Serum 0.87 mg/dL (0.55-1.02); EST Glomerular Filtration Rate 76 mL/min (>60); Est Glom Filt Rate - Afr Amer 92 mL/min (>60); Estimated Creatinine Clearance 88.93 ml/min; Globulin 3.2 g/dL (2.2-4.2); Glucose 114 mg/dL (74-106); Potassium 3.8 mmol/L (3.5-5.1); Protein, Total 6.8 g/dL (6.4-8.2); Sodium Level 139 mmol/L (136-145)
[2020-01-07 03:29] LABS: Acetaminophen (Tylenol) Level 8.4 ug/mL (10.0-30.0); Alcohol, Blood (Medical)-Serum < 3.0 mg/dL; Salicylate < 1.7 mg/dL (2.8-20.0)
[2020-01-07 03:46] LABS: Bacteria 0 SEEN /hpf (None Seen); Mucous, Urine 0 SEEN /hpf (<or=2+); Red Blood Cells-Urine 0 SEEN /hpf (0-5); White Blood Cells 0 SEEN /hpf (0-5)
[2020-01-07 03:48] LABS: Color, Urine Yellow (Yellow); Glucose, Dipstick Normal (Normal); Ketone-Dipstick Negative (Negative); Leukocyte Esterase-Dipstick Negative /ul (Negative); Nitrite-Dipstick Negative (Negative); Occult Blood-Urine Negative /ul (Negative); Protein-Dipstick Negative (Negative); Specific Gravity, Urine 1.015 (1.002-1.030); Urine Bilirubin Dipstick Negative (Negative); Urine Clarity Clear (Clear); Urine Urobilinogen Normal (Normal)
[2020-01-07 03:54] LABS: Amorphous Sediment 1+; Squamous Epithelial Cells - UA 5-10 SEEN /hpf (5-10); Transitional Epithelial - Ur 0-5 SEEN /hpf (0-5)
[2020-01-07 03:55] LABS: Hyaline Cast 0 SEEN /lpf (0-5)
[2020-01-07 03:59] LABS: Amphetamine Urine VISTA NEGATIVE (<1000 ng/mL); Barbiturate Urine VISTA NEGATIVE (< 200 ng/mL); Benzodiazepine Urine VISTA NEGATIVE (< 200 ng/mL); Cocaine Urine VISTA NEGATIVE (< 300 ng/mL); Ecstacy Urine VISTA POSITIVE (< 500 ng/mL); Methadone Urine VISTA NEGATIVE (< 300 ng/mL); PCP Urine VISTA NEGATIVE (< 25 ng/mL); THC Urine VISTA NEGATIVE (< 50 ng/mL); Vista UDS pH Range 6
--- NOTE | 2020-01-07 04:28 | PCM.HP.STD ---
Problem List (1) Sedative overdose Status: Acute History of Present Illness Date of Admission: 01/07/20 Chief Complaint: Sedative drug overdose The patient is a 39 year old F with a significant history of depression anxiety was brought to emergency department because of drug overdose with suicidal ideation. Patient had an argument with her after which she took about 15 tablets of mirtazapine with the intention to sleep and not wake up again. She denies any other symptoms. Reportedly initial presentation patient was lethargic but good opening eyes to verbal stimulation. At emergency department ED DOC discussed the case with poison control and recommendations were given. Past Medical History Medical History: Medical History (Last Reviewed 01/07/20 @ 06:[address] Jassi Flores MD) Anxiety and depression F41.9, F32.9 Asthma J45.909 Allergies amoxicillin Allergy (Verified 01/07/20 02:19) PT UNSURE OF REACTION cefaclor Allergy (Verified 01/07/20 02:19) Rash erythromycin base Allergy (Verified 01/07/20 02:19) PT UNSURE OF REACTION Sulfa (Sulfonamide Antibiotics) Adverse Reaction (Verified 01/07/20 02:19) Nausea/Vom/Diarrhea Home Medications: Ambulatory Orders Medication Instructions Recorded Albuterol Sulfate [Albuterol 2 puff INHALATION Q4H PRN PRN 01/07/20 Sulfate HFA] Bupropion HCl [Wellbutrin Xl] 300 mg PO DAILY 01/07/20 Duloxetine HCl 120 mg PO DAILY 01/07/20 Loratadine [Claritin] 10 mg PO DAILY 01/07/20 Mirtazapine [Remeron] 15 mg PO QHS 01/07/20 Surgical History: hysterectomy, tonsillectomy Smoking Status: Never smoker Alcohol: Occasional - *Family History Maternal History Items: Heart Disease, Stroke Paternal History Items: Heart Disease Review of Systems Constitutional: Denies: Chills, Fever, Weight Change HEENT: Denies: Head Aches, Sinus Congestion, Sinus Drainage Cardiovascular: Denies: Chest Pain, Palpitations Respiratory: Denies: Cough, Shortness of breath at rest, Sputum production Gastrointestinal: Denies: Abdominal Pain, Nausea, Vomiting Genitourinary: Denies: Dysuria Musculoskeletal: Denies: Joint Pain, Joint Tenderness Skin: Denies: Rash, Wounds Neurological: Denies: Numbness, Tingling, Focal weakness Psychiatric: Reports: Anxiety, Depression, Suicidal Ideations. Denies: Homicidal Ideations Hematologic/ Lymphatic: Denies: Easy Bruising, Easy Bleeding VTE Information - Inpt Only VTE Present on Admission: No VTE Mechan Device Prophylaxis: None VTE Pharm Prophylaxis ordered?: Yes Patient Problems: Active and Suspected Problems (Last Reviewed 01/07/20 @ 06:[address] Jassi Flores MD) Sedative overdose (Acute) - Physical Exam Vitals/I&O's: Vital Signs Temp Pulse Resp BP Pulse Ox 97.2 F L 88 16 124/82 H 99 01/07/20 02:14 01/07/20 04:27 01/07/20 04:27 01/07/20 04:27 01/07/20 04:27 Oxygen Delivery Method Room Air Weight: 75.3 kg Body Mass Index (BMI) 24.5 Finger Stick Blood Glucose 90 General: Alert, Oriented x3, Cooperative HEENT: Atraumatic, PERRLA, EOMI, Normocephalic Neck: Supple, No JVD, Negative Carotid Bruits Lungs: Clear to auscultation, Normal air movement Cardiovascular: Regular rate, No murmurs Abdomen: Bowel Sounds Present, Soft, Non Tender Extremities: No edema, Capillary Refill Less than 3 Seconds Skin: No rashes, No breakdown Musculoskeletal: No Tenderness to Palpation of Joints or Extremities Neurological: Cranial nerves II-XII grossly intact Psych/Mental Status: Normal Affect, Appropriate Laboratory Results 01/07/20 02:30: WBC 6.9, RBC 4.31, Hgb 13.7, Hct 41.2, MCV 95.6, MCH 31.8, MCHC 33.3, RDW Std Deviation 41.9, RDW Coeff of Samina 12.1, Plt Count 202, MPV 9.3, Immature Gran % (Auto) 0.300, Neut % (Auto) 56.6, Lymph % (Auto) 29.0, [place] % (Auto) 10.5 H, Eos % (Auto) 2.7, Baso % (Auto) 0.9, Absolute Neuts (auto) 3.9, Absolute Lymphs (auto) 2.01, Nucleated RBC % 0 01/07/20 02:30: Sodium 139, Potassium 3.8, Chloride 109 H, Carbon Dioxide 27.0, Anion Gap 3 L, BUN 14, Creatinine 0.87, Estim Creat Clear Calc 88.93, Est GFR (MDRD) Af Amer 92, Est GFR (MDRD) Non-Af 76, BUN/Creatinine Ratio 16.1, Glucose 114 H, Calcium 8.5, Total Bilirubin 0.40, AST 14 L, ALT 24, Alkaline Phosphatase 66, Total Protein 6.8, Albumin 3.6, Globulin 3.2, Albumin/Globulin Ratio 1.1 01/07/20 02:30: Salicylates < 1.7 L, Acetaminophen 8.4 L, Ethyl Alcohol < 3.0 01/07/20 02:30: Serum , Qual NEGATIVE 01/07/20 03:35: Urine Color Yellow, Urine Clarity Clear, Urine pH 6.0, Ur Specific Rose 1.015, Urine Protein Negative, Urine Glucose (UA) Normal, Urine Ketones Negative, Urine Occult Blood Negative, Urine Nitrite Negative, Urine Bilirubin Negative, Urine Urobilinogen Normal, Ur Leukocyte Esterase Negative, Urine RBC 0 SEEN, Urine WBC 0 SEEN, Ur Squamous Epith Cells 5-10 SEEN, Ur Transition Epith Cell 0-5 SEEN, Amorphous Sediment 1+, Urine Bacteria 0 SEEN, Hyaline Casts 0 SEEN, Urine Mucus 0 SEEN 01/07/20 03:35: Urine Opiates Screen NEGATIVE, Urine Methadone Screen NEGATIVE, Ur Barbiturates Screen NEGATIVE, Ur Phencyclidine Scrn NEGATIVE, Ur Amphetamines Screen NEGATIVE, U Methamphetamin-MDMA POSITIVE H, U Benzodiazepines Scrn NEGATIVE, Urine Cocaine Screen NEGATIVE, U Cannabinoids Screen NEGATIVE, Ur Drug Screen Comment Assessment/Plan All Active Problems (Last Reviewed 01/07/20 @ 06:[address] Jassi Flores MD) Sedative overdose (Acute) The patient is a 39 year old F with a significant history of depression anxiety was brought to emergency department because of exudative overdose with suicidal attempt Sedative overdose with suicidal attempt EKG showed QTC prolongation of 471. Observe patient's on telemetry at the medical surgical unit. Half-life of Remeron is 20 to 40 hours. Potassium level was 3.8 will give 20 mEq of potassium. Will check magnesium level Per recommendation from poison control symptom acetaminophen level, salicylate level, tox screen and basic labs were done at emergency department. Acetaminophen level and salicylate level was unremarkable. Urine toxicology was positive for methamphetamine but that could be a false positive from Wellbutrin use. Suicidal precautions Crisis consult. Asthma Stable Albuterol PRN continued Allergies Claritin continued Depression/anxiety Duloxetine continued Bupropion continued Mirtazapine held secondary to overdose from same drug. DVT Prophylaxis Subcutaneous Lovenox. Inpatient E&M: 90046 Init Hosp L3
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
[2020-01-07 07:05] LABS: Magnesium 2.2 mg/dL (1.6-2.6)
--- NOTE | 2020-01-07 07:38 | PCM.PN.BLA ---
Progress Note 39-year-old lady admitted following an upper and suicidal attempt to Remeron after she got into an argument with her . Patient has been admitted to a monitored bed where patient is currently being monitored one-to-one. Her initial assessment including history and physical diagnostic data and management orders reviewed will follow. STROKE Vital Signs/Narrative: Vital Signs Temp Pulse Resp BP Pulse Ox 01/07/20 07:01 100 01/07/20 05:49 92 01/07/20 05:40 97.8 F 89 16 128/80 H 100 01/07/20 05:18 97.3 F L 97 20 H 137/67 H 98 01/07/20 04:27 88 16 124/82 H 99 01/07/20 03:40 87 21 H 141/99 H 98
[2020-01-07] MEDS: DULoxetine Hcl 60 MG Capsule 120 MG PO (09:25)
[2020-01-07] MEDS: buPROPion (XL) 300 MG TABLET.XL PO (09:25)
--- NOTE | 2020-01-07 11:02 | CASEMGMT ---
Social Work Note Once pt is medically cleared, Crisis will evaluate pt. Aura Diane PACU NURSE, WOOD POLISHER
[2020-01-07] MEDS: Acetaminophen 325 MG Tablet 650 MG PO ×2 (12:02→20:29)
[2020-01-07] MEDS: Loratadine 10 MG Tablet PO (20:29)
[2020-01-08] VITALS (9 sets, daily range): BP systolic 111–128; BP diastolic 73–89; PULSE 72–99; RESP 16; TEMP 36.7–36.9; O2SAT 97–100
--- NOTE | 2020-01-08 07:35 | PCM.HP.STD ---
History of Present Illness The patient is a 39 year old F [] Past Medical History Medical History: Medical History (Last Reviewed 01/07/20 @ 06:[address] Jassi Flores MD) Anxiety and depression F41.9, F32.9 Asthma J45.909 Allergies amoxicillin Allergy (Verified 01/07/20 02:19) PT UNSURE OF REACTION cefaclor Allergy (Verified 01/07/20 02:19) Rash erythromycin base Allergy (Verified 01/07/20 02:19) PT UNSURE OF REACTION Sulfa (Sulfonamide Antibiotics) Adverse Reaction (Verified 01/07/20 02:19) Nausea/Vom/Diarrhea Home Medications: Ambulatory Orders Medication Instructions Recorded Albuterol Sulfate [Albuterol 2 puff INHALATION Q4H PRN PRN 01/07/20 Sulfate HFA] Bupropion HCl [Wellbutrin Xl] 300 mg PO DAILY 01/07/20 Duloxetine HCl 120 mg PO DAILY 01/07/20 Loratadine [Claritin] 10 mg PO QHS 01/07/20 Mirtazapine [Remeron] 15 mg PO QHS 01/07/20 Surgical History: hysterectomy, tonsillectomy Smoking Status: Never smoker Alcohol: Occasional - *Family History Maternal History Items: Heart Disease, Stroke Paternal History Items: Heart Disease Patient Problems: Active and Suspected Problems (Last Reviewed 01/07/20 @ 06:[address] Jassi Flores MD) Sedative overdose (Acute) - Physical Exam Vitals/I&O's: Vital Signs Temp Pulse Resp BP Pulse Ox 98.1 F 80 16 111/73 97 01/08/20 01:47 01/08/20 04:29 01/08/20 01:47 01/08/20 01:47 01/08/20 01:47 Oxygen Delivery Method Room Air Weight: 72.5 kg Body Mass Index (BMI) 23.6 Finger Stick Blood Glucose 90 Intake and Output for Last 24 Hours 01/06/20 01/07/20 01/08/20 23:59 23:59 23:59 Intake Total 720 / 720 Balance 720 / 720 Current Medications Acetaminophen (Tylenol) 650 mg PO Q6H PRN PRN PRN Reason: Pain Score 1-10/Temp > 100.7 F Last Admin: 01/07/20 20:29 Dose: 650 mg Documented by: Albuterol Sulfate (Ventolin Aerosols) 2.5 mg INHALATION Q2H PRN PRN PRN Reason: sob/wheezing Bupropion HCl (Wellbutrin Xl) 300 mg PO DAILY [facility] Last Admin: 01/07/20 09:25 Dose: 300 mg Documented by: Duloxetine HCl (Cymbalta) 120 mg PO DAILY [facility] Last Admin: 01/07/20 09:25 Dose: 120 mg Documented by: Sodium Chloride () 250 mls @ 15 mls/hr IV .[id number] PRN PRN Reason: Saline Flush Sodium Chloride () 250 mls @ 15 mls/hr IV .[id number] PRN PRN Reason: Additional IVPB Infusion Loratadine (Claritin) 10 mg PO QHS [facility] Last Admin: 01/07/20 20:29 Dose: 10 mg Documented by: Ondansetron HCl (Zofran) 4 mg IV Q8H PRN PRN PRN Reason: NAUSEA/VOMITING Sodium Chloride () 10 - 40 ml IV UD PRN PRN Reason: SALINE FLUSH Assessment/Plan All Active Problems (Last Reviewed 01/07/20 @ 06:[address] Jassi Flores MD) Sedative overdose (Acute)
[2020-01-08] MEDS: DULoxetine Hcl 60 MG Capsule 120 MG PO (08:58)
[2020-01-08] MEDS: buPROPion (XL) 300 MG TABLET.XL PO (08:58)
--- NOTE | 2020-01-08 10:45 | PCM.PN.HOSP ---
Patient Problems: Active and Suspected Problems (Last Reviewed 01/07/20 @ 06:[address] Jassi Flores MD) Sedative overdose (Acute) Reason for Visit: Intentional drug overdose Subjective: 39-year-old lady admitted following an upper and suicidal attempt to [facility] after she got into an argument with her . Patient has been admitted to a monitored bed where patient is currently being monitored one-to-one. Objective: GENERAL: cooperative HEENT: Atraumatic; EYES; Anicteric, Normal Conjunctiva NECK; supple, normal thyroid, RESPIRATORY: Diminished to auscultation CARDIOVASCULAR: Regular S1 S2, GI: soft, normoactive bowel sounds, : No Renal angle tenderness; EXTREMITIES: No edema, no clubbing, MUSCULOSKELETAL: no muscle waisting NEURO: Awake; no lateralizing signs. SKIN: No Rash PSYCH; Flat affect Vitals/I&O's: Vital Signs Temp Pulse Resp BP Pulse Ox 98.1 F 78 16 128/89 H 100 01/08/20 08:47 01/08/20 08:47 01/08/20 08:47 01/08/20 08:47 01/08/20 08:47 Oxygen Delivery Method Room Air Weight: 72.5 kg Body Mass Index (BMI) 23.6 Finger Stick Blood Glucose 90 Intake and Output for Last 24 Hours 01/06/20 01/07/20 01/08/20 23:59 23:59 23:59 Intake Total 720 / 720 Balance 720 / 720 Current Medications Acetaminophen (Tylenol) 650 mg PO Q6H PRN PRN PRN Reason: Pain Score 1-10/Temp > 100.7 F Last Admin: 01/07/20 20:29 Dose: 650 mg Documented by: Albuterol Sulfate (Ventolin Aerosols) 2.5 mg INHALATION Q2H PRN PRN PRN Reason: sob/wheezing Bupropion HCl (Wellbutrin Xl) 300 mg PO DAILY [facility] Last Admin: 01/08/20 08:58 Dose: 300 mg Documented by: Duloxetine HCl (Cymbalta) 120 mg PO DAILY [facility] Last Admin: 01/08/20 08:58 Dose: 120 mg Documented by: Sodium Chloride () 250 mls @ 15 mls/hr IV .[id number] PRN PRN Reason: Saline Flush Sodium Chloride () 250 mls @ 15 mls/hr IV .[id number] PRN PRN Reason: Additional IVPB Infusion Loratadine (Claritin) 10 mg PO QHS [facility] Last Admin: 01/07/20 20:29 Dose: 10 mg Documented by: Ondansetron HCl (Zofran) 4 mg IV Q8H PRN PRN PRN Reason: NAUSEA/VOMITING Sodium Chloride () 10 - 40 ml IV UD PRN PRN Reason: SALINE FLUSH STROKE Vital Signs/Narrative: Vital Signs Temp Pulse Resp BP Pulse Ox 01/08/20 08:47 98.1 F 78 16 128/89 H 100 Medical Necessity - Tobacco Use Smoking Status: Never smoker Assessment/Plan All Active Problems (Last Reviewed 01/07/20 @ 06:[address] Jassi Flores MD) Sedative overdose (Acute) 39-year-old lady admitted following an upper and suicidal attempt to Remeron after she got into an argument with her . Patient has been admitted to a monitored bed where patient is currently being monitored one-to-one. 1. Intentional drug overdose in the suicidal attempt ?Patient did take Remeron an unknown amount. Poison control contacted on admission. Patient currently being monitored with daily EKG. QTC this a.m. is 468. Plan is to repeat EKG in a.m. and if normalized patient to be seen by crisis prior to discharge 2. Mild intermittent asthma ?Not in any exacerbation albuterol as needed ordered 3. Depression with anxiety patient is on duloxetine and bupropion continued 4. DVT prophylaxis ?Lovenox Inpatient E&M: 50618 Subs Hosp L2
--- NOTE | 2020-01-08 11:02 | CASEMGMT ---
Social Work Note Once pt is medically cleared, Crisis will evaluate pt. Aura Diane SALES EXHIBITOR, MAIL SORTER
[2020-01-08] MEDS: Acetaminophen 325 MG Tablet 650 MG PO (16:37)
[2020-01-08] MEDS: Loratadine 10 MG Tablet PO (21:23)
[2020-01-09 02:09] VITALS: BP 111/75; PULSE 83; RESP 16; TEMP 36.7; O2SAT 99
[2020-01-09 03:23] VITALS: PULSE 80
--- NOTE | 2020-01-09 09:27 | CASEMGMT ---
Social Work Note Pt is medically cleared for crisis to evaluate. ENA placed a call to [facility] and spoke with Karen in Crisis and provided referral. ENA faxed referral to [phone]. Aura Diane JUNCTION MAKER, ULTRASOUND TECH
--- NOTE | 2020-01-09 10:20 | DCINST_ITS ---
- Discharge Diagnoses Current Active Problems: Current Active and Chronic Problems (Last Reviewed 01/07/20 @ 06:[address] Jassi Flores MD) Sedative overdose (Acute) You will use the following diet at home:: No restrictions Your food should be the consistency of: Regular Your liquids should be the consistency of: Regular/Thin Discharge Activity: Return to Normal Activity, No Restrictions Call your doctor if you observe: - - Suicidal Ideation Allergies/Adverse Reactions: Allergies amoxicillin Allergy (Verified 01/07/20 02:19) PT UNSURE OF REACTION cefaclor Allergy (Verified 01/07/20 02:19) Rash erythromycin base Allergy (Verified 01/07/20 02:19) PT UNSURE OF REACTION Sulfa (Sulfonamide Antibiotics) Adverse Reaction (Verified 01/07/20 02:19) Nausea/Vom/Diarrhea Medications to take at Discharge Albuterol Sulfate [Albuterol Sulfate HFA] 2 puff INHALATION Q4H PRN PRN 01/07/20 Bupropion HCl [Wellbutrin Xl] 300 mg PO DAILY 01/07/20 Duloxetine HCl 120 mg PO DAILY 01/07/20 Loratadine [Claritin] 10 mg PO QHS 01/07/20 Mirtazapine [Remeron] 15 mg PO QHS 01/07/20 Primary Care Physician: Pankaj Anaya MD [Primary Care Provider] - Please follow up with your Primary Care Physician in: 1-2 weeks Test Results: Test results from this visit will be discussed in further detail at your follow- up appointment, if applicable. Please Follow Up With: Crisis Center When: As directed
--- NOTE | 2020-01-09 10:20 | NURSING ---
fitness worker CALLED IN AND REQUESTED TO TALK WITH dR. DIAZ. AFTERWARDS TALKED WITH THIS NURSE AGAIN STATING THEY WILL BE SAFETY PLANNING PATIENTS HOME AND WILL BE FAXING PAPERWORK FOR PATIENT TO SIGN.
--- NOTE | 2020-01-09 10:21 | PCM.DC.SUM ---
Discharge Date and Diagnosis - Problem List Patient Problems: Active and Suspected Problems (Last Reviewed 01/07/20 @ 06:[address] Jassi Flores MD) Sedative overdose (Acute) Date of Admission: 01/07/20 Date of Discharge: 01/09/20 - Primary Discharge Diagnosis Acute Problems: Active Problems (Last Reviewed 01/07/20 @ 06:[address] Jassi Flores MD) Sedative overdose (Acute) Hospital Course and Treatment Imaging Results: None Consultations 01/07/20 06:04 Consult: Mental Health/Crisis Routine Reason for consult?: Suicidal attempt Date Notified:: 01/09/20 Time Notified:: 10:19 Operations: None Procedures: None Summary of Care Provided: Ms Bellamy is a 39 year old F with a PMH of depression/anxiety who was brought to ED on 01/07/2020 because of drug overdose with suicidal ideation. She had an argument with her after which she took about 15 tablets of mirtazapine with the intention to sleep and not wake up again. She denied any other symptoms. Upon initial presentation she was lethargic but good opening eyes to verbal stimulation. At emergency department ED physician discussed the case with poison control and recommendations were given. She had mild QTc prolongation at 471 on admission. Supportive care was given and she was monitored on tele. She has been stable and her EKG now has a QTc of 406. She was evaluated by Crisis and they cleared her to go home. She has f/u scheduled with them on 01/16 and a crisis plan has been arranged. She was d/c home in stable condition. Patient Problems: Active and Suspected Problems (Last Reviewed 01/07/20 @ 06:[address] Jassi Flores MD) Sedative overdose (Acute) Subjective: Pt states that she is feeling well and anxious to go home. - Physical Exam Vitals/I&O's: Vital Signs Temp Pulse Resp BP Pulse Ox 98.0 F 80 16 111/75 99 01/09/20 02:09 01/09/20 03:23 01/09/20 02:09 01/09/20 02:09 01/09/20 02:09 Oxygen Delivery Method Room Air Weight: 72.5 kg Body Mass Index (BMI) 23.6 Finger Stick Blood Glucose 90 Intake and Output for Last 24 Hours 01/07/20 01/08/20 01/09/20 23:59 23:59 23:59 Intake Total 720 / 720 Balance 720 / 720 General: Alert, Oriented x3, Cooperative, No apparent distress, Well developed, Well nourished Neck: Supple, Trachea Midline Lungs: Clear to auscultation, Normal air movement, No rhonchi, No wheeze, No rales Cardiovascular: Regular rate, Regular Rhythm, Normal S1, Normal S2, No murmurs, No Ectopic Activity, No rub noted, No Gallop Abdomen: Bowel Sounds Present, Soft, Non Tender, Non-Distended Extremities: No clubbing, No cyanosis, No edema, Capillary Refill Less than 3 Seconds, Peripheral Pulses Normal Neurological: Cranial nerves II-XII grossly intact, Neuro grossly intact Psych/Mental Status: Normal Affect, Appropriate, - - very pleasant, Alert and oriented to time, place, person, mood and affect Current Medications Acetaminophen (Tylenol) 650 mg PO Q6H PRN PRN PRN Reason: Pain Score 1-10/Temp > 100.7 F Last Admin: 01/08/20 16:37 Dose: 650 mg Documented by: Albuterol Sulfate (Ventolin Aerosols) 2.5 mg INHALATION Q2H PRN PRN PRN Reason: sob/wheezing Bupropion HCl (Wellbutrin Xl) 300 mg PO DAILY [facility] Last Admin: 01/08/20 08:58 Dose: 300 mg Documented by: Duloxetine HCl (Cymbalta) 120 mg PO DAILY [facility] Last Admin: 01/08/20 08:58 Dose: 120 mg Documented by: Sodium Chloride () 250 mls @ 15 mls/hr IV .[id number] PRN PRN Reason: Saline Flush Sodium Chloride () 250 mls @ 15 mls/hr IV .[id number] PRN PRN Reason: Additional IVPB Infusion Loratadine (Claritin) 10 mg PO QHS [facility] Last Admin: 01/08/20 21:23 Dose: 10 mg Documented by: Ondansetron HCl (Zofran) 4 mg IV Q8H PRN PRN PRN Reason: NAUSEA/VOMITING Sodium Chloride () 10 - 40 ml IV UD PRN PRN Reason: SALINE FLUSH Discharge Activity: Return to Normal Activity, No Restrictions Call your doctor if you observe: - - Suicidal Ideation Home Medications: Medications to take at Discharge Albuterol Sulfate [Albuterol Sulfate HFA] 2 puff INHALATION Q4H PRN PRN 01/07/20 Bupropion HCl [Wellbutrin Xl] 300 mg PO DAILY 01/07/20 Duloxetine HCl 120 mg PO DAILY 01/07/20 Loratadine [Claritin] 10 mg PO QHS 01/07/20 Mirtazapine [Remeron] 15 mg PO QHS 01/07/20 Primary Care Physician: Pankaj Anaya MD [Primary Care Provider] - Please follow up with your Primary Care Physician in: 1-2 weeks Please Follow Up With: Crisis Center When: As directed Medical Necessity - Tobacco Use Smoking Status: Never smoker Meaningful Use Info Meaningful Use Diagnoses (Choose all that apply): None applicable Inpatient E&M: 10154 [facility]
[2020-01-09] MEDS: DULoxetine Hcl 60 MG Capsule 120 MG PO (10:48)
[2020-01-09] MEDS: buPROPion (XL) 300 MG TABLET.XL PO (10:49)
[2020-01-09 10:50] VITALS: BP 128/91; PULSE 89; RESP 16; TEMP 36.7; O2SAT 99
[2020-01-09 11:05] VITALS: PULSE 91
--- NOTE | 2020-01-09 11:30 | PHA.DC.MR ---
Pharmacy Service has performed discharge medication reconciliation for this patient. The patient's discharge medication list was reviewed for discrepancies and discrepancies were resolved. Home Medications Albuterol Sulfate [Albuterol Sulfate HFA] 2 puff INHALATION Q4H PRN PRN 01/07/20 Bupropion HCl [Wellbutrin Xl] 300 mg PO DAILY 01/07/20 Duloxetine HCl 120 mg PO DAILY 01/07/20 Loratadine [Claritin] 10 mg PO QHS 01/07/20 Mirtazapine [Remeron] 15 mg PO QHS 01/07/20
== END 2020-01-09 11:25 | disposition home or self-care (01) ==
LOC: ED 04:39 → MS3 04:55
PROVIDERS: Admitting Provider Hospitalist; Emergency Provider Emergency Medicine; PCP Family Medicine; Visit Provider Internal Medicine
DX: T43.022A Poisoning by tetracyclic antidepressants, intentional self-harm, initial encounter (principal); R53.83 Other fatigue; Y92.9 Unspecified place or not applicable; R94.31 Abnormal electrocardiogram [ECG] [EKG]; J45.20 Mild intermittent asthma, uncomplicated; F41.8 Other specified anxiety disorders; Z79.899 Other long term (current) drug therapy
CPT/HCPCS: 71045; 80053; 80307; 80320; 80329; 81001; 83735; 84703; 85025; 93005; 99218; 99285; A4216; G0378; G0480

== ENCOUNTER → 2020-01-17 10:18 | Outpatient (CLI) | payer MEDICAID, SELFPAY ==
[2020-01-17 09:24] VITALS: BMI 23.6
[2020-01-17 11:14] LABS: Vitamin B12 573 pg/mL (211-911)
[2020-01-17 11:24] LABS: Thyroid Stim Hormone (TSH) 2.46 uIU/mL (0.358-3.74)
== END ==
PROVIDERS: PCP Family Medicine; Referring Provider Nurse Practitioner Family; Visit Provider Nurse Practitioner Family
DX: R53.83 Other fatigue (principal)
CPT/HCPCS: 36415; 82607; 84443

== ENCOUNTER → 2020-04-04 06:41 | Outpatient (CLI) | payer MEDICAID, SELFPAY ==
[2020-02-21 15:08] VITALS: BMI 23.6
--- NOTE | 2020-04-04 08:52 | TELEMED_ITS ---
[facility] has confirmed receipt of a request for visit. This document confirms receipt of the order initiating the consult. To find the results of the consultation, please view the patient's reports for the scanned Telemed Consult.
== END ==
PROVIDERS: PCP Family Medicine; Referring Provider Psychiatry & Neurology Neurology; Visit Provider Psychiatry & Neurology Neurology
DX: R42 Dizziness and giddiness (principal)
CPT/HCPCS: 95819

== ENCOUNTER 2020-08-26 14:56 | Emergency (ER) | payer MEDICAID, SELFPAY ==
[2020-08-26 14:57] VITALS: BP 135/86; PULSE 76; RESP 18; TEMP 36.6; O2SAT 98; BMI 22.8
--- NOTE | 2020-08-26 15:15 | ED.DCSUM_ITS ---
History of Present Illness Chief Complaint: Laceration Informant: Patient Onset: Today Current Severity: Mild Maximum Severity: Mild Narrative: Patient presents with a skin avulsion to her left thumb she had difficulty ge tting bleeding controlled. Patient states she was cutting some cabbage when the knife cut her left thumb. She has been elevating and holding pressure for over an hour but was not able to get the bleeding to stop. She was not on any anticoagulants. She is unsure of her last tetanus update. - Past Medical History (1) Anxiety and depression Status: Chronic (2) Asthma Status: Chronic Past Medical History - Allergies and Home Meds Allergies/Adverse Reactions: Allergies amoxicillin Allergy (Verified 08/26/20 14:56) PT UNSURE OF REACTION cefaclor Allergy (Verified 08/26/20 14:56) Rash erythromycin base Allergy (Verified 08/26/20 14:56) PT UNSURE OF REACTION Sulfa (Sulfonamide Antibiotics) Adverse Reaction (Verified 08/26/20 14:56) Nausea/Vom/Diarrhea Primary Care Physician: Pankaj Anaya MD [Primary Care Provider] - Prior records reviewed: Yes Surgical History: hysterectomy, tonsillectomy Lives: With Family Smoking Status: Never smoker - Family History Maternal Family History: Family History (Last Reviewed 05/29/20 @ 13:56 by Patricia Evangelista) Grandmother CVA (cerebral vascular accident) Family History: Reports: Heart Disease, Stroke Paternal Family History: Family History (Last Reviewed 05/29/20 @ 13:56 by Patricia Evangelista) Grandmother CVA (cerebral vascular accident) Family History: Reports: Heart Disease Review of Systems General: Denies: Chills, Fever Eyes: Denies: Visual changes - bilaterally ENT: Denies: Bilateral ear pain Cardiovascular: Denies: Chest pain Respiratory: Denies: Dyspnea, Cough Gastrointestinal: Denies: Abdominal pain, Nausea, Vomiting, Diarrhea Genitourinary: Denies: Dysuria Musculoskeletal: Reports: Extremity Pain - 1 x 3 mm area of skin avulsion to the pad of the left thumb. Skin: Reports: Wounds Neurological: Denies: Headache, Parasthesia, Numbness Hematologic: Denies: Easy bruising, Easy bleeding Allergy: Denies: Uticaria Physical Exam Vital Signs/Narrative: Vital Signs Temp Pulse Resp BP Pulse Ox 08/26/20 14:57 98 F 76 18 135/86 H 98 Inital Vital Signs reviewed: Yes General: Well nourished, Well developed Head: Normocephalic Neck: Supple Cardiovascular: Regular rate, Regular rhythm Respiratory: No distress, CTA bilaterally Abdomen: Soft, Nontender Extremities: - - 1 x 3 mm skin avulsion to the pad of the left thumb. Normal ca p refill distally with full range of motion. Normal sensation. Neurological: Alert, Oriented x3, Normal Strength, Normal Sensation Psychological: Normal affect Diagnostic/Tx/Re-eval - Medical Decision Making Surgifoam was placed over the wound and wrapped. On repeat evaluation bleeding is improved, however on redressing the Surgifoam shifted breaking the scab and she started to bleed slightly again. This was redressed and hand is elevated. Tetanus update will be provided. Will be checked 1 more time and as long as no significant bleeding noted she will be discharged home. ED Disposition - Plan for ED Patient: Disposition: Home or Assisted Living Diagnosis: Skin avulsion Instructions: ED Skin Avulsion Referrals: Pankaj Anaya MD [Primary Care Provider] - As Needed
[2020-08-26] MEDS: Diphth,Pertuss(Acell),Tet Vac 0.5 ML Vial IM (16:16)
== END 2020-08-26 16:45 | disposition home or self-care (01) ==
PROVIDERS: Emergency Provider Emergency Medicine; PCP Family Medicine
DX: S61.002A Unspecified open wound of left thumb without damage to nail, initial encounter (principal); Z23 Encounter for immunization; W26.0XXA Contact with knife, initial encounter; Y93.G3 Activity, cooking and baking; Y92.9 Unspecified place or not applicable; Y99.9 Unspecified external cause status; J45.909 Unspecified asthma, uncomplicated; F32.9 Major depressive disorder, single episode, unspecified; F41.9 Anxiety disorder, unspecified; Z79.899 Other long term (current) drug therapy
CPT/HCPCS: 90715; 99282

== ENCOUNTER 2021-01-04 23:57 | Emergency (ER) | payer MEDICAID, SELFPAY ==
[2021-01-05] VITALS: BP 128/94; PULSE 73; RESP 16; TEMP 36.5; O2SAT 99; BMI 23.6
--- NOTE | 2021-01-05 00:14 | RAD_ITS ---
STUDY: X-RAY CHEST REASON FOR EXAM: Female, 40 years old. Cough TECHNIQUE: Portable, upright, AP chest radiograph COMPARISON: 01/07/2020 FINDINGS: The lungs are clear and expanded. There is no demonstrated pleural abnormality. Normal size heart. Normal mediastinum and nesha. Normal visualized pulmonary arteries. Normal visualized aortic arch and descending thoracic aorta. Normal visualized thoracic spine. Normal visualized ribs, clavicles, and shoulders. There is no demonstrated abnormality of the visualized soft tissue structures of the upper abdomen. RAD/Chest 1 View (Portable) IMPRESSION: No acute abnormal cardiopulmonary finding. Electronically Signed: Getachew Martinez MD at 1:33 EDT Tel , Service support ,
--- NOTE | 2021-01-05 00:18 | EX.ED.VIS.UR ---
HPI HPI - URI History of Present Illness Chief Complaint: Cough Informant: patient Onset/Context/Timing Onset: Days Context: Gradual Onset Timing: Continuous Current Severity: Mild Maximum Severity: Mild Associated Symptoms Associated Symptoms: Positive for Nonproductive cough; Negative for Nausea, Vomiting and Diarrhea Narrative Narrative: 40-year-old asthmatic female 1 week history of URI symptoms with cough and low-grade fever of 100.1. States was seen in urgent care. Had a negative Covid test reportedly negative chest x-ray. States she is feeling worse. Is on albuterol inhaler and prednisone 40 mg a day for 10 days. Son 11 years old at home is Covid positive. She denies other symptoms. Prior similar symptoms: Yes Recent Illness/Hospitalization: No ROS ROS ED Review of Systems ROS Unobtainable: Denies due to encephalopathy Constitutional Constitutional ED: Reports fever(s); Denies chills Eyes Eyes: Denies change in vision ENT ENT ED: Denies ear pain or sore throat Cardiovascular Cardiovascular: Denies chest pain or palpitations Respiratory/Chest Respiratory/Chest: Reports cough and dyspnea Gastrointestinal Gastrointestinal: Denies abdominal pain, diarrhea, nausea or vomiting Genitourinary Genitourinary ED: Denies dysuria, hematuria or urinary frequency Musculoskeletal Musculoskeletal: Denies myalgias Integumentary Denies rash Neurologic Neurologic: Denies headache(s) Psychiatric Psychiatric: Denies depression Endocrine Endocrinology: Denies polyuria Hematologic/Lymphatic Hematologic/Lymphatic: Denies easy bruising Allergic/Immunologic Allergic/Immunologic ED: Denies urticaria PFSH PFS Medical History (Updated 01/05/21 @ 02:[address] Tyrone Moulton MD) Anxiety and depression Asthma Home Medications albuterol sulfate 2 puff INHALATION Q4H PRN PRN 01/07/20 [History Last Taken Unknown] loratadine 10 mg PO QHS 01/07/20 [History Last Taken 01/06/20] biotin 1,000 mcg chewable tablet 2,000 mcg PO DAILY tab 01/17/20 [History Last Taken Unknown] cranberry extract 500 mg tablet 500 mg PO DAILY tab 01/17/20 [History Last Taken Unknown] fluoxetine 20 mg tablet 20 mg PO DAILY tab 05/29/20 [History Last Taken Unknown] Allergy/AdvReac Type Severity Reaction Status Date / Time amoxicillin Allergy PT UNSURE Verified 01/05/21 00:11 OF REACTION cefaclor Allergy Rash Verified 01/05/21 00:11 erythromycin base Allergy PT UNSURE Verified 01/05/21 00:11 OF REACTION Sulfa (Sulfonamide AdvReac Nausea/Vom/ Verified 01/05/21 00:11 Antibiotics) Diarrhea Family History Grandmother CVA (cerebral vascular accident) Surgical History History of cholecystectomy History of total hysterectomy Social History Smoking Status: Never smoker alcohol intake: current alcohol intake frequency: holidays/special occasions only substance use type: does not use EXAM Physical Exam Narrative Exam Narrative: Well-appearing middle-aged female. Vital signs are stable. She is afebrile. She is in no distress. Her pulse ox is 99% on room air no signs of hypoxia. H EENT exam unremarkable. Laryngitis. Neck nontender no lymphadenopathy. Posterior pharynx normal. Lungs clear to auscultation bilaterally. No rales rhonchi or wheezing. Dry cough. Heart regular rhythm rate about 70 no murmur. Abdomen soft nontender. Moving all 4 extremities. Calves are nontender without edema. Neurologically she is awake and alert. Const Vital Signs: 01/05/21 00:00 Temperature 97.7 F L Temperature Source Temporal Pulse Rate 73 Respiratory Rate 16 Blood Pressure 128/94 H Blood Pressure Mean 105 Pulse Ox 99 Oxygen Delivery Method Room Air Positive well nourished and well developed General Appearance ED: well developed and NAD; Negative for cyanotic, diaphoretic or pallor HEENT Reports moist mucous membranes normocephalic and atraumatic Face and Sinus: Negative for sinus tenderness Eyes PERRL and EOMs intact bilaterally Neck no lymphadenopathy, supple, no meningeal signs and no JVD General: Negative for anterior neck swelling Resp normal respiratory effort and clear to auscultation bilaterally Auscultation: Negative for rales, rhonchi or wheezes Cardio S1 normal heart sound, S2 normal heart sound and no murmurs Rate: regular rate Rhythm: regular rhythm GI non-tender, non-distended and no masses Inspection: Negative for abdominal distention Auscultation: normoactive bowel sounds Palpation: soft; Negative for tender or guarding Back/Spine no CVA tenderness and normal ROM General Back: Negative for CVA tenderness Cervical Spine: Negative for cervical spine tenderness Extremity normal to inspection and full ROM General Extremety ED: Negative for cyanosis or tenderness General Extremity: Negative for cyanosis Neuro oriented x3 and CN's II-XII intact bilaterally Sensorium / Orientation: alert, oriented to person, oriented to place and oriented to time; Negative for orientation impaired, lethargic or stuporous Motor Exam: strength 5/5 throughout Psych mental status grossly normal Skin General Skin Exam: Negative for jaundice or pallor Lesions: no lesions Rashes: no rashes MDM MDM MDM Narrative Medical decision making narrative: 40-year-old female with URI. Benign exam. She is already on steroids. I will obtain a chest x-ray and a Covid test. Lab Data Attestation: I reviewed the patient's lab results. Lab results narrative: Covid test is positive. Radiography Diagnostic Testing: Radiology Impression Chest X-Ray 01/05/21 00:14 IMPRESSION: No acute abnormal cardiopulmonary finding. Electronically Signed: Getachew Martinez MD at 1:33 EDT Tel , Service support , Portable single view chest x-ray interpreted by myself is normal. Normal cardiac silhouette mediastinum. No infiltrates. No signs of Covid. Discharge Plan Triage Chief Complaint: Cough ED Provider: Tyrone Moulton Dx/Rx/DC Orders Clinical Impression: COVID-19 Instructions: Symptoms of COVID-19 Infection Prescriptions: No Action biotin 1,000 mcg tablet,chewable 2,000 mcg PO DAILY RF: 0 cranberry extract 500 mg tablet 500 mg PO DAILY RF: 0 fluoxetine 20 mg tablet 20 mg PO DAILY RF: 0 loratadine 10 MG tablet 10 mg PO QHS RF: 0 albuterol sulfate 1 PUFF inhaler 2 puff inhalation Q4H PRN PRN (Reason: Asthma) RF: 0 Primary Care Provider: Pankaj Anaya Referrals: Pankaj Anaya MD [Primary Care Provider] - Activity Restrictions/Additional Instructions: Continue on your steroids. Follow-up with your primary care physician as needed. Your Covid test was positive. Quarantine for 10 days from the onset of your symptoms. Disposition Disposition: Home, Self Care
[2021-01-05 02:26] VITALS: BP 123/87; PULSE 78; RESP 51; TEMP 36.6; O2SAT 98
[2021-01-05 02:30] VITALS: O2SAT 98
== END 2021-01-05 02:31 | disposition home or self-care (01) ==
PROVIDERS: Emergency Provider Emergency Medicine; PCP Family Medicine
DX: U07.1 COVID-19 (principal); J45.909 Unspecified asthma, uncomplicated; F32.9 Major depressive disorder, single episode, unspecified; F41.9 Anxiety disorder, unspecified; Z79.899 Other long term (current) drug therapy
CPT/HCPCS: 71045; 87426; 99282

== ENCOUNTER → 2022-03-23 | Outpatient (CLI) | payer MEDICAID, SELFPAY ==
[2022-03-23] MEDS: Methacholine Chloride 18 ml neb kit INHALATION (13:17)
--- NOTE | 2022-03-23 15:13 | BRONCHALL ---
Bronchoprovocation Challenge Bronchoprovocation Challenge Bronchoprovocation Challenge: BRONCHOPROVOCATION STUDY INTERPRETATION Brief HPI: Patient is a 41 year old female, currently under the care of Dr. Oro, who presents to [facility] for a bronchoprovocation study secondary to diagnosis of chronic cough. Respiratory therapist reports good effort and reproducible results. Interpretation: Initial spirometry showed no large airways obstructive ventilatory defect. The patient was then given increasingly concentrated doses of methacholine in a stepwise/standardized fashion, using a modified ATS protocol. The patient?s maximum reduction in FEV1 was 14 percent predicted. Impression: Negative Bronchoprovocation study. This is NOT consistent with the diagnosis of asthma.
== END | disposition home or self-care (01) ==
LOC: PSN 12:55
PROVIDERS: PCP Family Medicine
DX: R05.3 Chronic cough (principal)
CPT/HCPCS: 94070; 95070

== ENCOUNTER 2022-10-28 16:31 | Emergency (ER) | payer MEDICAID, SELFPAY ==
[2022-10-28 16:33] VITALS: BP 135/93; PULSE 92; RESP 14; TEMP 35.7; O2SAT 97; BMI 24.8
--- NOTE | 2022-10-28 16:56 | EKG12_ITS ---
Test Reason : SYNCOPE Blood Pressure : / mmHG Vent. Rate : 080 BPM Atrial Rate : 080 BPM P-R Int : 162 ms QRS Dur : 082 ms QT Int : 404 ms P-R-T Axes : 069 056 066 degrees QTc Int : 465 ms Normal sinus rhythm with sinus arrhythmia Normal ECG Confirmed by DARRION SULLIVAN, ORQUIDEA ([id number]), video editor TATUM IRIZARRY ([id number]) on 11/01/2022 10:44:28 A M Referred By: Confirmed By:RYANN MAIER MD
--- NOTE | 2022-10-28 16:56 | CT_ITS ---
INDICATION: syncope yesterday EXAMINATION: CT BRAIN - CT Head or Brain W/O Contrast Injection TECHNIQUE: Multiple axial images were obtained of the head without intravenous contrast. A radiation dose optimization technique was used for this scan. IV Contrast dosage and agent: None. COMPARISON: 11/08/2019 FINDINGS: BRAIN PARENCHYMA: No intra- or extra-axial hemorrhage. No evidence of acute infarct. No intracranial mass or mass effect. Posterior fossa structures are unremarkable. CSF SPACES: Appropriate for age. No hydrocephalus. Basal cisterns are patent. CALVARIUM, SKULL BASE, PARANASAL SINUSES AND MASTOID AIR CELLS: Clear. No discrete lytic or blastic abnormalities. ORBITS: Both globes, extraocular muscles, optic nerves and retrobulbar fat appear unremarkable. CT/Brain/Head without Contrast IMPRESSION: No acute intracranial findings. Electronically Signed: Junior Larson MD at 18:07 EDT ,
--- NOTE | 2022-10-28 17:10 | EDS_ITS ---
HPI <MICKI Joseph - Last Filed: 10/28/22 19:11> History of Present Illness Chief Complaint: Syncope Narrative Narrative: Patient is a 42-year-old female with history of anxiety, depression, chronic neck and back pain who presents to the emergency department for a syncopal episode which occurred yesterday. Patient states that she got up, she felt very dizzy and then had a syncopal episode. She woke up in the hallway. Patient states she had pain to her left shoulder. She is unsure if she hit her head. Today, the patient states she feels generally out of it. She says she feels like she is in a fog. She denies any headache however states that she does have some light sensitivity. She denies any chest pain or shortness of breath. Patient did have a hysterectomy and there is no sign of her . PFSH <MICKI Joseph - Last Filed: 10/28/22 19:11> [facility] Medical History (Updated 10/28/22 @ 19:09 by MICKI Joseph) Anxiety and depression Asthma Home Medications albuterol sulfate 90 mcg/actuation aerosol inhaler 2 puff inhalation Q4H PRN PRN Asthma 01/07/20 [History Last Taken Unknown] loratadine 10 mg tablet 10 mg PO QHS 01/07/20 [History Last Taken 01/06/20] biotin 1,000 mcg chewable tablet 2,000 mcg PO DAILY 01/17/20 [History Last Taken Unknown] cranberry extract 500 mg tablet 500 mg PO DAILY 01/17/20 [History Last Taken Unknown] fluoxetine 20 mg tablet 20 mg PO DAILY 05/29/20 [History Last Taken Unknown] Allergy/AdvReac Type Severity Reaction Status Date / Time amoxicillin Allergy PT UNSURE Verified 10/28/22 16:32 OF REACTION cefaclor Allergy Rash Verified 10/28/22 16:32 erythromycin base Allergy PT UNSURE Verified 10/28/22 16:32 OF REACTION Sulfa (Sulfonamide AdvReac Nausea/Vom/ Verified 10/28/22 16:32 Antibiotics) Diarrhea Family History Grandmother CVA (cerebral vascular accident) Surgical History History of cholecystectomy History of total hysterectomy Social History Smoking Status: Never smoker alcohol intake: current alcohol intake frequency: holidays/special occasions only substance use type: does not use ROS <MICKI Joseph - Last Filed: 10/28/22 19:11> ROS ED ROS Narrative Constitutional: Negative for fever, chills, weight loss, weakness Eyes: Negative for vision loss, vision change, double vision ENT: Negative for any sore throat, ear pain, congestion Cardiovascular: Negative for any chest pain, tightness, palpitations Respiratory: Negative for any cough, sputum production, hemoptysis, dyspnea, dyspnea on exertion, orthopnea Gastrointestinal: Negative for any abdominal pain, nausea, vomiting, diarrhea, constipation, blood in stool, blood in vomit : Negative for any urinary frequency, dysuria, retention, blood in urine Muscle skeletal: Negative for any muscle joint pain, stiffness, myalgias, arthralgias, neck pain, back pain. Positive for left shoulder pain Neurological: Negative for any headache, numbness or tingling, dizziness. Positive for syncope Skin: Negative for any rashes, lumps, itching, abrasions, lacerations Psychiatric: Negative for any depression, anxiety, stress, suicidal ideation, homicidal ideation Hematologic: Negative for any easy bruising, excessive bruising, easy bleeding Allergies: Negative for any eczema, hives, rash EXAM <MICKI Joseph - Last Filed: 10/28/22 19:11> Physical Exam Narrative Exam Narrative: Vital signs reviewed. HEET: Head normocephalic atraumatic, TMs clear bilaterally. Posterior pharynx is clear, moist mucous membranes. Nares clear bilaterally. Pupils are equal round reactive to light. Negative for any hemotympanum or septal hematoma. Neck: Supple with no lymphadenopathy or tenderness. No signs of meningismus, negative jolt sign. Cardiac: Regular rate and rhythm no murmurs gallops or rubs, equal peripheral pulses bilaterally. Respiratory: Lungs clear to auscultation bilaterally. No chest tenderness. Abdomen: Soft, nontender, nondistended. No abdominal bruit or pulsatile masses. No hepatosplenomegaly Extremities: No peripheral edema, no signs of gross trauma or deformity. Active full range of motion of all extremities. Patient has pain to palpation to the anterior left shoulder however there is no dislocation, there is no neurological focal deficit. +2 radial pulse Neuro: Cranial nerves II through XII intact, no focal neurological deficits. NIH stroke scale 0 Skin: Clean dry and intact with no rash, purpura, petechiae, vesicles or pustules. Backs/flank: No CVA tenderness, no midline spinal tenderness, no deformity. Psych: Normal mood and affect. No SI, HI or acute psychosis. Const Vital Signs: 10/28/22 16:33 10/28/22 16:36 10/28/22 17:18 Temperature 96.2 F L Temperature Source Temporal Pulse Rate 92 Pulse Rate [Lying] 84 Pulse Rate [Sitting (for 1 minute prior to obtaining)] 83 Pulse Rate [Standing (for 1 minute prior to obtaining)] 92 Respiratory Rate 14 Respiratory Pattern Normal Blood Pressure 135/93 H Blood Pressure [Lying] 124/76 H Blood Pressure [Sitting (for 1 minute prior to obtaining)] 127/78 H Blood Pressure [Standing (for 1 minute prior to obtaining)] 129/94 H Blood Pressure Mean 107 Blood Pressure Mean [Lying] 92 Blood Pressure Mean [Sitting (for 1 minute prior to obtaining)] 94 Blood Pressure Mean [Standing (for 1 minute prior to obtaining)] 105 Pulse Ox 97 Oxygen Delivery Method Room Air 10/28/22 19:06 10/28/22 19:13 Temperature Temperature Source Pulse Rate 83 93 Pulse Rate [Lying] Pulse Rate [Sitting (for 1 minute prior to obtaining)] Pulse Rate [Standing (for 1 minute prior to obtaining)] Respiratory Rate 16 14 Respiratory Pattern Blood Pressure 116/87 H 116/87 H Blood Pressure [Lying] Blood Pressure [Sitting (for 1 minute prior to obtaining)] Blood Pressure [Standing (for 1 minute prior to obtaining)] Blood Pressure Mean 96 Blood Pressure Mean [Lying] Blood Pressure Mean [Sitting (for 1 minute prior to obtaining)] Blood Pressure Mean [Standing (for 1 minute prior to obtaining)] Pulse Ox 100 98 Oxygen Delivery Method Room Air <Dr. Chino Jordan MD - Last Filed: 10/28/22 23:24> Physical Exam Const Vital Signs: 10/28/22 16:33 10/28/22 16:36 10/28/22 17:18 Temperature 96.2 F L Temperature Source Temporal Pulse Rate 92 Pulse Rate [Lying] 84 Pulse Rate [Sitting (for 1 minute prior to obtaining)] 83 Pulse Rate [Standing (for 1 minute prior to obtaining)] 92 Respiratory Rate 14 Respiratory Pattern Normal Blood Pressure 135/93 H Blood Pressure [Lying] 124/76 H Blood Pressure [Sitting (for 1 minute prior to obtaining)] 127/78 H Blood Pressure [Standing (for 1 minute prior to obtaining)] 129/94 H Blood Pressure Mean 107 Blood Pressure Mean [Lying] 92 Blood Pressure Mean [Sitting (for 1 minute prior to obtaining)] 94 Blood Pressure Mean [Standing (for 1 minute prior to obtaining)] 105 Pulse Ox 97 Oxygen Delivery Method Room Air 10/28/22 19:06 10/28/22 19:13 Temperature Temperature Source Pulse Rate 83 93 Pulse Rate [Lying] Pulse Rate [Sitting (for 1 minute prior to obtaining)] Pulse Rate [Standing (for 1 minute prior to obtaining)] Respiratory Rate 16 14 Respiratory Pattern Blood Pressure 116/87 H 116/87 H Blood Pressure [Lying] Blood Pressure [Sitting (for 1 minute prior to obtaining)] Blood Pressure [Standing (for 1 minute prior to obtaining)] Blood Pressure Mean 96 Blood Pressure Mean [Lying] Blood Pressure Mean [Sitting (for 1 minute prior to obtaining)] Blood Pressure Mean [Standing (for 1 minute prior to obtaining)] Pulse Ox 100 98 Oxygen Delivery Method Room Air JAQUELINE <MICKI Joseph - Last Filed: 10/28/22 19:11> [facility] Lab Data Labs: Laboratory Results - last 24 hr 10/28/22 10/28/22 17:20 17:20 WBC 6.6 RBC 4.33 Hgb 12.7 Hct 39.8 MCV 91.9 MCH 29.3 MCHC 31.9 L RDW Std Deviation 40.0 RDW Coeff of Samina 11.9 Plt Count 203 MPV 9.7 Immature Gran % (Auto) 0.300 Neut % (Auto) 45.5 L Lymph % (Auto) 33.0 [place] % (Auto) 6.8 Eos % (Auto) 13.6 H Baso % (Auto) 0.8 Absolute Neuts (auto) 3.0 Absolute Lymphs (auto) 2.19 Nucleated RBC % 0 Sodium 142 Potassium 4.0 Chloride 110 H Carbon Dioxide 28.0 Anion Gap 4 L BUN 7 Creatinine 0.79 Estim Creat Clear Calc 94.97 Est GFR (MDRD) Af Amer 102 Est GFR (MDRD) Non-Af 84 BUN/Creatinine Ratio 8.9 L Glucose 84 Calcium 8.9 Radiography Diagnostic Testing: Clinical Impression(s) from Imaging Studies Brain CT 10/28/22 16:56 IMPRESSION: No acute intracranial findings. Electronically Signed: Junior Larson MD at 18:07 EDT , Shoulder X-Ray 10/28/22 17:35 IMPRESSION: Unremarkable study. Electronically Signed: Junior Larson MD at 18:08 EDT , Treatment and Re-Evaluation :: All radiologic examinations were read, reviewed by the emergency department attending. From these reads, a plan of care will be put in place. Patient CBC, chemistries were unremarkable, patient's left shoulder x-ray as well as CT scan of brain was grossly unremarkable. Negative for any intracranial bleeding, skull fracture, need for any left shoulder injury. Patient EKG was unremarkable. With static vital signs appear to be negative, patient was given IV fluids. Patient reassessment was feeling much better. Is no evidence to suspect any seizure activity, cranial bleeding, skull fracture, shoulder fracture. On reassessment, the patient was feeling better. The patient is under a great deal of stress. At this time, believe the patient can be discharged. She is ambulatory multiple times going to the bathroom. She instructed return for any worsening symptoms <Dr. Chino Jordan MD - Last Filed: 10/28/22 23:24> [facility] MDM Narrative Medical decision making narrative: I have personally performed a face to face assessment of the patient and have reviewed the KEVIN Note. I performed a substantive portion of the visit including all aspects of the following. My asencio findings include: History: Patient had a syncopal episode yesterday. She has had these before but they are scattered widely throughout her life. She states she got up from a desk. She was going to the restroom. She left the room was walking down the daniels and then she woke up on the ground. She has a little soreness of her left shoulder. She assumes she hit her head but not sure. She has no headache but she just feels a little lightheaded and off. No chest pain or trouble breathing. She admits that she has not been sleeping well recently. There have been some medication changes with psychiatric medicines but really has not had any big changes for couple weeks or more. She has been feeling well prior to this. Exam: Patient awake alert appropriate no acute distress. No sign of significant head trauma. Oropharynx is moist. No JVD. Lungs are clear. Breathing is easy and unlabored and her saturations are normal at 98% on room air showing no hypoxia. Heart sounds regular. Not tachycardic. Abdomen is benign. Extremities show no edema or cords. Medical Decision Making: Patient did have a medical work-up. She is also PERC negative and is not having symptoms traditionally related with pulmonary embolus. CT of her head and x-ray of the shoulder show no acute process. She is comfortable going home. Lab Data Attestation: I reviewed the patient's lab results. Labs: Laboratory Results - last 24 hr 10/28/22 10/28/22 17:20 17:20 WBC 6.6 RBC 4.33 Hgb 12.7 Hct 39.8 MCV 91.9 MCH 29.3 MCHC 31.9 L RDW Std Deviation 40.0 RDW Coeff of Samina 11.9 Plt Count 203 MPV 9.7 Immature Gran % (Auto) 0.300 Neut % (Auto) 45.5 L Lymph % (Auto) 33.0 [place] % (Auto) 6.8 Eos % (Auto) 13.6 H Baso % (Auto) 0.8 Absolute Neuts (auto) 3.0 Absolute Lymphs (auto) 2.19 Nucleated RBC % 0 Sodium 142 Potassium 4.0 Chloride 110 H Carbon Dioxide 28.0 Anion Gap 4 L BUN 7 Creatinine 0.79 Estim Creat Clear Calc 94.97 Est GFR (MDRD) Af Amer 102 Est GFR (MDRD) Non-Af 84 BUN/Creatinine Ratio 8.9 L Glucose 84 Calcium 8.9 Radiography Diagnostic Testing: Clinical Impression(s) from Imaging Studies Brain CT 10/28/22 16:56 IMPRESSION: No acute intracranial findings. Electronically Signed: Junior Larson MD at 18:07 EDT , Shoulder X-Ray 10/28/22 17:35 IMPRESSION: Unremarkable study. Electronically Signed: Junior Larson MD at 18:08 EDT , Discharge Plan Triage Chief Complaint: Syncope ED Midlevel Provider: Getachew Pool ED Provider: Chino Jordan Dx/Rx/DC Orders Clinical Impression: Syncope, Left shoulder strain Instructions: Causes of Syncope, Diagnosing Syncope, ED Muscle Strain, Extremity Prescriptions: No Action biotin 1,000 mcg tablet,chewable 2,000 mcg PO DAILY cranberry extract 500 mg tablet 500 mg PO DAILY Rx Instructions: administer with meals fluoxetine 20 mg tablet 20 mg PO DAILY loratadine 10 MG tablet 10 mg PO QHS albuterol sulfate 1 PUFF inhaler 2 puff inhalation Q4H PRN PRN (Reason: Asthma) Primary Care Provider: Pankaj nAaya Referrals: Pankaj Anaya MD [Primary Care Provider] - Activity Restrictions/Additional Instructions: Please ice your shoulder. Maintain your hydration. Change positions slowly. Disposition Disposition: Home, Self Care Discharge Date/Time: 10/28/22 19:33
[2022-10-28 17:18] VITALS: BP 124/76; BP 127/78; BP 129/94; PULSE 83; PULSE 84; PULSE 92
[2022-10-28] MEDS: 0.9% Normal Saline 1,000 ML 1000 ML IV (17:23)
--- NOTE | 2022-10-28 17:35 | RAD_ITS ---
INDICATION: Trauma, fall, shoulder injury EXAMINATION/TECHNIQUE: X-RAY - LEFT XR Shoulder Min 2 Views 4 VIEWS COMPARISON: None. FINDINGS: SOFT TISSUES: No soft tissue swelling or gas. No radiopaque foreign body. BONES/JOINTS: No acute fracture. Joint spaces anatomically aligned. No sclerotic or destructive changes observed. RAD/Shoulder min 2 Views IMPRESSION: Unremarkable study. Electronically Signed: Junior Larson MD at 18:08 EDT ,
[2022-10-28 17:39] LABS: Absolute Lymphocyte Count 2.19 X10^3/uL (0.83-4.51); Basophil# 0.05 X10^3/uL; Basophil% 0.8 % (0-1); Eosinophils% 13.6 % (0-5); Hematocrit 39.8 % (37-47); Hemoglobin 12.7 g/dL (12.0-15.0); Lymphocyte # 2.19 X10^3/ul (0.83-4.51); Mean Corp Hgb Conc 31.9 g/dL (32-36); Mean Corpuscular Hgb 29.3 pg (27.0-32.0); Mean Corpuscular Volume 91.9 fL (81-99); Mean Platelet Vol. 9.7 fl (6.2-12.0); Monocyte# 0.45 X10^3/uL; Monocyte% 6.8 % (0-10); NRBC Flagged by Analyzer 0 % (0-5); Neutrophil # 3.02 X10^3/uL (2.7-7.7); Neutrophil % 45.5 % (47-70); Platelet Count 203 K/mm3 (150-450); RBC Distribution Width CV 11.9 % (11.6-14.6); Red Blood Count 4.33 M/mm3 (4.2-5.4); White Blood Count 6.6 K/mm3 (4.4-11.0)
[2022-10-28 17:52] LABS: Anion Gap 4 (5-15); BUN 7 mg/dL (7-18); BUN/Creat Ratio 8.9 RATIO (10-20); Calcium,Total 8.9 mg/dL (8.5-10.1); Chloride 110 mmol/L (98-107); Creatinine, Serum 0.79 mg/dL (0.55-1.02); EST Glomerular Filtration Rate 84 mL/min (>60); Est Glom Filt Rate - Afr Amer 102 mL/min (>60); Estimated Creatinine Clearance 94.97 ml/min; Glucose 84 mg/dL (74-106); Sodium Level 142 mmol/L (136-145)
[2022-10-28 19:06] VITALS: BP 116/87; PULSE 83; RESP 16; O2SAT 100
[2022-10-28 19:13] VITALS: BP 116/87; PULSE 93; RESP 14; O2SAT 98
== END 2022-10-28 19:33 | disposition home or self-care (01) ==
PROVIDERS: Nurse Practitioner; Emergency Provider Emergency Medicine; PCP Family Medicine; Visit Provider Emergency Medicine
DX: R55 Syncope and collapse (principal); S46.912A Strain of unspecified muscle, fascia and tendon at shoulder and upper arm level, left arm, initial encounter; X58.XXXA Exposure to other specified factors, initial encounter
CPT/HCPCS: 70450; 73030; 80048; 85025; 93005; 96360; 96361; 99283; J7030; A4216

== ENCOUNTER 2024-03-30 09:43 | Emergency (ER) | payer MEDICAID, SELFPAY ==
[2024-03-30 09:44] VITALS: BP 148/72; PULSE 75; RESP 16; TEMP 36.7; O2SAT 100
[2024-03-30 09:54] VITALS: BMI 22.1
[2024-03-30] MEDS: Fluorescein 1 MG STRIP 1 STRIP OPHTHALMIC (11:01)
[2024-03-30] MEDS: Tetracaine 0.5% Ophthalmic Bottle 1 DRP OPHTHALMIC (11:02)
[2024-03-30 11:25] VITALS: BP 148/72; PULSE 75; RESP 16; TEMP 36.7; O2SAT 100
--- NOTE | 2024-03-30 11:30 | EDS_ITS ---
HPI History of Present Illness Chief Complaint: Rash Narrative Narrative: Chief complaint and HPI: Facial/neck pain and rash. 43-year-old female with past medical history of anxiety, depression, sciatica presents for evaluation of facial/neck pain as well as new rash. Patient states for the past 2 days she has been having burning/sharp pain in her left neck and face. She states it starts in her neck and radiates up the back of her head into the frontal forehead and down into the left eye. She states she has been having left ear pain as well. Patient states she has been taking her meloxicam, muscle relaxer, and gabapentin for the pain. She states yesterday she noticed a few red dots on her forehead in the distribution of her pain. She presented at an urgent care today who sent her to the emergency department for further evaluation. Patient denies any fever, chills, chest pain, shortness of breath. She states she occasionally gets blurry vision in her left eye. She has had chickenpox as a child. She denies rash or pain elsewhere. She denies any numbness or tingling. She is able to move her neck. Eating and drinking well. She is not diabetic or immunocompromised. Review of systems: See HPI Medications: As listed on the chart Allergies: As listed on the chart PFSH: Per chart Vital signs: As listed on the chart. Reviewed. Physical exam: Gen: A&O x3 Head: Normocephalic, atraumatic, patient has 3 erythematous, small, circular lesions on the left frontal forehead by her hairline-possible early shingles however cannot fully define at this time. The rash is in the distribution of her pain. No rash seen elsewhere. Eye: No periorbital swelling or ecchymosis, no proptosis, no pain with extra ocular movements, EOMI intact, no sclera chemosis or injection, A fluorescein dye was instilled in the left eye and under UV light no uptake was identified-no dendritic sign or corneal abrasion. Intraocular pressure was 16 in the left eye. Visual Acuity 20/20 bilaterally and 20/25 in both eyes ENT: TMs clear BL - no herpetic/vesicular lesions or rash on the TM or in the EAC, moist mucous membranes, posterior oropharynx unremarkable, uvula midline, no herpetic lesions in the mouth nose unremarkable without herpetic lesion, Neck: Trachea midline, No JVD, Full ROM, No meningismus CV: RRR, no murmurs Resp: Lungs CTA BL, no w/r/c Musc: Full ROM, no deformity Neuro: Alert, oriented, grossly intact, sensation intact Psych: Cooperative, appropriate mood and affect [facility] Medical History (Updated 03/30/24 @ 11:[address] Jt Duran DO) Asthma Anxiety and depression Home Medications ?Medication ?Instructions ?Recorded ?Last Taken ?Type albuterol sulfate 90 mcg/actuation 2 puff inhalation Q4H PRN PRN 01/07/20 Unknown History aerosol inhaler Asthma loratadine 10 mg tablet 10 mg PO QHS 01/07/20 01/06/20 History biotin 1,000 mcg chewable tablet 2,000 mcg PO DAILY 01/17/20 Unknown History cranberry extract 500 mg tablet 500 mg PO DAILY 01/17/20 Unknown History fluoxetine 20 mg tablet 20 mg PO DAILY 05/29/20 Unknown History fluoxetine 20 mg capsule 20 mg PO DAILY 03/30/24 Unknown History gabapentin 100 mg capsule 100 mg PO TID 03/30/24 Unknown History meloxicam 15 mg tablet 15 mg PO DAILY 03/30/24 Unknown History oxycodone-acetaminophen 5 mg-325 1 tab PO Q8H PRN pain 3 days #10 03/30/24 Unknown Rx mg tablet (Percocet) tabs prednisone 20 mg tablet 40 mg (2 x 20 mg) PO DAILY 5 days 03/30/24 Unknown Rx #10 tabs valacyclovir 1 gram tablet 1,000 mg PO Q8H 7 days #21 tabs 03/30/24 Unknown Rx Allergy/AdvReac Type Severity Reaction Status Date / Time amoxicillin Allergy PT UNSURE Verified 03/30/24 09:47 OF REACTION cefaclor Allergy Rash Verified 03/30/24 09:47 erythromycin base Allergy PT UNSURE Verified 03/30/24 09:47 OF REACTION Sulfa (Sulfonamide AdvReac Nausea/Vom/ Verified 03/30/24 09:47 Antibiotics) Diarrhea Family History Grandmother CVA (cerebral vascular accident) Surgical History History of cholecystectomy History of total hysterectomy Social History Smoking Status: Never smoker alcohol intake: current alcohol intake frequency: holidays/special occasions only substance use type: does not use EXAM Physical Exam Const Vital Signs: 03/30/24 09:44 03/30/24 11:25 Temperature 98.1 F 98.1 F Temperature Source Oral Pulse Rate 75 75 Respiratory Rate 16 16 Blood Pressure 148/72 H 148/72 H Blood Pressure Mean 97 97 Pulse Ox 100 100 Oxygen Delivery Method Room Air MDM MDM MDM Narrative Medical decision making narrative: 43-year-old female with past medical history of anxiety, depression, sciatica presents for evaluation of facial/neck pain as well as new rash. Patient describes a neuropathic pain and she describes it in a dermatome pattern. Pain came first and then a rash. See physical exam findings. Rash is concerning for possible early shingles infection. No signs of Osprey Lees syndrome or Murdock sign on physical exam. No dendritic lesions of the left eye. Patient is not immunocompromised or have any meningismus signs to suggest disseminated herpes zoster infection or meningitis. I suspect that patient's pain is all secondary to neuropathic pain from shingles infection. I do not think any laboratory or imaging is work at this time. Patient was educated on all of this. She was made aware that shingles is contagious. Patient was educated to continue her gabapentin. Will place her on Valtrex as well as prednisone for shingles infection. Follow-up with PCP. Will give her Percocet as needed for severe pain. Patient was educated to stop taking her muscle relaxer as it has a contraindication with valacyclovir. She was educated to take NSAIDs as needed for pain. She needs to follow-up with her PCP. Return precautions were discussed such as vision changes, lesions on the ear as well as the nose or worsening symptoms. She confirmed understanding. Patient is stable to discharge home. Impression: 1. Herpes zoster infection, shingles Discharge Plan Triage Chief Complaint: Rash ED Provider: Jt Duran Dx/Rx/DC Orders Clinical Impression: Acute herpes zoster neuropathy Instructions: Treating Peripheral Neuropathy, ED Shingles (Herpes Zoster) Prescriptions: New oxycodone-acetaminophen [Percocet] 5-325 mg tablet 1 tab PO Q8H PRN (Reason: pain) 3 Days Qty: 10 0RF valacyclovir 1 gram tablet 1,000 mg PO Q8H 7 Days Qty: 21 0RF prednisone 20 mg tablet 40 mg PO DAILY 5 Days Qty: 10 0RF Discontinued tizanidine 4 mg tablet 4 mg PO Q8H PRN PRN (Reason: muscle spasm) No Action biotin 1,000 mcg tablet,chewable 2,000 mcg PO DAILY cranberry extract 500 mg tablet 500 mg PO DAILY Rx Instructions: administer with meals fluoxetine 20 mg tablet 20 mg PO DAILY loratadine 10 MG tablet 10 mg PO QHS albuterol sulfate 1 PUFF inhaler 2 puff inhalation Q4H PRN PRN (Reason: Asthma) meloxicam 15 mg tablet 15 mg PO DAILY gabapentin 100 mg capsule 100 mg PO TID fluoxetine 20 mg capsule 20 mg PO DAILY Primary Care Provider: Pankaj Anaya Referrals: Pankaj Anaya MD [Primary Care Provider] - 3-5 Days Activity Restrictions/Additional Instructions: Return back to the ED if symptoms change or worsen. Continue the meloxicam as well as your gabapentin. Follow-up with your primary care physician. You need to stop taking your muscle relaxer while taking the above medications. Print Language: Prydeinig Disposition Disposition: Home, Self Care Discharge Date/Time: 03/30/24 11:32
== END 2024-03-30 11:32 | disposition home or self-care (01) ==
PROVIDERS: Emergency Provider Surgery; PCP Family Medicine; Visit Provider Surgery
DX: B02.9 Zoster without complications (principal); F41.9 Anxiety disorder, unspecified; F32.A Depression, unspecified; Z79.899 Other long term (current) drug therapy
CPT/HCPCS: 99283

== ENCOUNTER 2024-08-23 10:09 | Emergency (ER) | payer MEDICAID, SELFPAY ==
[2024-08-23 10:10] VITALS: BP 158/106; PULSE 96; RESP 16; TEMP 36.6; O2SAT 100; BMI 23.1
--- NOTE | 2024-08-23 10:31 | EX.ED.DYSGE1 ---
HPI History of Present Illness Chief Complaint: Headache Informant: patient Narrative Narrative: 44-year-old female came to the emergency department today on the advice of nurse practitioner. Patient states that last year she had a V1 shingles outbreak. She states that about 3 weeks ago she began to have flulike symptoms developed a rash on the left side of her neck near the first rib. She states that after a week she went to urgent care was told that she had recurrent shingles and was placed on steroids and gabapentin. She states the rash does not look like her prior shingles and does not feel like her prior shingles. She notes that it is itchy. She had tried various topical hydrocortisone Benadryl creams. She states that her symptomology resolved but on Tuesday she began to have flulike symptoms again and the rash returned. Notes some rhinorrhea. She notes a chronic cough to vocal cord dysfunction. She states that yesterday she had flashes of white light in her left eye. None today also noted a left forehead pain which has occasionally been there since shingles. She states that she returned to urgent care today where they advised her to come to emergency for a CT and she tells me that they were worried about internal shingles. [facility] Medical History (Updated 08/23/24 @ 12:[address] Karson Toro, DO) Asthma Anxiety and depression Home Medications ?Medication ?Instructions ?Recorded ?Last Taken ?Type albuterol sulfate 90 mcg/actuation 2 puff inhalation Q4H PRN PRN 01/07/20 Unknown History aerosol inhaler Asthma loratadine 10 mg tablet 10 mg PO QHS 01/07/20 01/06/20 History biotin 1,000 mcg chewable tablet 2,000 mcg PO DAILY 01/17/20 Unknown History cranberry extract 500 mg tablet 500 mg PO DAILY 01/17/20 Unknown History fluoxetine 20 mg tablet 20 mg PO DAILY 05/29/20 Unknown History fluoxetine 20 mg capsule 20 mg PO DAILY 03/30/24 Unknown History gabapentin 100 mg capsule 100 mg PO TID 03/30/24 Unknown History meloxicam 15 mg tablet 15 mg PO DAILY 03/30/24 Unknown History oxycodone-acetaminophen 5 mg-325 1 tab PO Q8H PRN pain 3 days #10 03/30/24 Unknown Rx mg tablet (Percocet) tabs prednisone 20 mg tablet 40 mg (2 x 20 mg) PO DAILY 5 days 03/30/24 Unknown Rx #10 tabs valacyclovir 1 gram tablet 1,000 mg PO Q8H 7 days #21 tabs 03/30/24 Unknown Rx betamethasone dipropionate 0.05 % 1 applic topical BID 7 days #45 08/23/24 Unknown Rx topical cream grams Allergy/AdvReac Type Severity Reaction Status Date / Time amoxicillin Allergy PT UNSURE Verified 08/23/24 10:10 OF REACTION cefaclor Allergy Rash Verified 08/23/24 10:10 erythromycin base Allergy PT UNSURE Verified 08/23/24 10:10 OF REACTION Sulfa (Sulfonamide AdvReac Nausea/Vom/ Verified 08/23/24 10:10 Antibiotics) Diarrhea Family History Grandmother CVA (cerebral vascular accident) Surgical History History of cholecystectomy History of total hysterectomy Social History housing: house Smoking Status: Never smoker alcohol intake: current alcohol intake frequency: holidays/special occasions only substance use type: does not use ROS ROS ED Constitutional Constitutional ED: Reports chills; Denies fever(s) or weight loss Eyes Eyes: Denies change in vision or diplopia ENT ENT ED: Reports rhinorrhea; Denies ear pain or sore throat Cardiovascular Cardiovascular: Denies chest pain, orthopnea, palpitations or racing heartbeat Respiratory/Chest Respiratory/Chest: Reports cough; Denies dyspnea or orthopnea Gastrointestinal Gastrointestinal: Denies abdominal pain, diarrhea, nausea or vomiting Genitourinary Genitourinary ED: Denies dysuria, hematuria or urinary frequency Musculoskeletal Musculoskeletal: Denies arthralgias or myalgias Integumentary Reports rash; Denies abscess Neurologic Neurologic: Reports headache(s) and paresthesias; Denies weakness Psychiatric Psychiatric: Denies anxiety, depression, suicidal ideation or suicidal thoughts Endocrine Endocrinology: Denies polydipsia, polyphagia or polyuria Allergic/Immunologic Allergic/Immunologic ED: Denies mouth swelling, tongue swelling or urticaria EXAM Physical Exam Const Vital Signs: 08/23/24 10:10 08/23/24 12:09 08/23/24 12:40 Temperature 97.9 F 98 F Temperature Source Oral Pulse Rate 96 61 61 Respiratory Rate 16 16 16 Blood Pressure 158/106 H 109/63 109/63 Blood Pressure Mean 123 78 78 Pulse Ox 100 98 98 Oxygen Delivery Method Room Air Positive well nourished and well developed General Appearance ED: well developed HEENT Reports normocephalic, head/scalp atraumatic and moist mucous membranes Eyes PERRL and EOMs intact bilaterally Eyes Narrative: Funduscopically I get a good exam with the lights off. I do not see any obvious retinal detachment optic disc appears normal blood vessels appear normal. There is no photophobia. No conjunctival injection. There is no corneal lesions. I do not appreciate any herpetic like rash in the periorbital region erythema or swelling. Neck no lymphadenopathy, supple and no JVD Neck Narrative: Left neck along the first rib scalene area is a 6 cm x 1 cm slightly red slightly raised area of skin. Resp normal respiratory effort and clear to auscultation bilaterally Cardio regular rate, regular rhythm and no murmurs GI normal to inspection, nondistended, normoactive bowel sounds and non-tender Palpation: soft Back/Spine no CVA tenderness and normal ROM Extremity normal to inspection General Extremety ED: Negative for edema General Extremity: Negative for edema Neuro oriented x3 and CN's II-XII intact bilaterally Sensorium / Orientation: alert Motor Exam: strength 5/5 throughout Psych mental status grossly normal Mood & Affect: Negative for depressed or tearful Skin no rashes or lesions noted and no wounds MDM MDM MDM Narrative Medical decision making narrative: Differential diagnosis includes contact dermatitis allergic reaction shingles aneurysm malignancy sinusitis Patient blood work showed a white count of 4.4 hemoglobin 13.5 platelet count of 161. BMP within normal limits. CTA of the head and neck shows no acute findings. I spoke with the patient. We uploaded a picture of her rash into the chart. Do not feel that this is shingles. This appears to be more of a dermatitis and gives the appearance of more of a contact dermatitis. We talked about oral versus topical steroids. Will write for some betamethasone cream. Would recommend dermatology follow-up as it has been recurrent. Should she redevelop any ocular symptoms she can follow-up with ophthalmology. Would recommend PCP follow-up as well History & Record Review Discussion w/independent historian: Patient Lab Data Attestation: I reviewed the patient's lab results. Labs: Laboratory Results - last 24 hr 08/23/24 10:49 WBC 4.4 RBC 4.42 Hgb 13.5 Hct 40.4 MCV 91.4 MCH 30.5 MCHC 33.4 RDW Std Deviation 39.7 RDW Coeff of Samina 11.8 Plt Count 161 MPV 9.4 Immature Gran % (Auto) 0.200 Neut % (Auto) 49.2 Lymph % (Auto) 33.9 [place] % (Auto) 12.7 H Eos % (Auto) 2.9 Baso % (Auto) 1.1 H Absolute Neuts (auto) 2.2 Absolute Lymphs (auto) 1.50 Nucleated RBC % 0 Sodium 140 Potassium 3.8 Chloride 105 Carbon Dioxide 25.0 Anion Gap 10 BUN 10 Creatinine 0.85 Estim Creat Clear Calc 86.43 Est GFR (MDRD) Non-Af 85 BUN/Creatinine Ratio 12.2 Glucose 84 Calcium 9.1 Radiography Diagnostic Testing: Clinical Impression(s) from Imaging Studies Head/Neck CTA 08/23/24 10:50 IMPRESSION: No aneurysms or arteriovenous malformations are noted involving the major vessels of the head and neck. No masses or other abnormalities are demonstrated. Multilevel spondylosis and degenerative disc disease, cervical spine. No intracranial abnormalities. Reading Location: [place] [address] Discharge Plan Triage Chief Complaint: Headache ED Provider: Karson Toro Dx/Rx/DC Orders Clinical Impression: Rash, Headache, Visual disturbance Prescriptions: New betamethasone dipropionate 0.05 % cream 1 applic topical BID 7 Days Qty: 45 0RF No Action biotin 1,000 mcg tablet,chewable 2,000 mcg PO DAILY cranberry extract 500 mg tablet 500 mg PO DAILY Rx Instructions: administer with meals fluoxetine 20 mg tablet 20 mg PO DAILY loratadine 10 MG tablet 10 mg PO QHS albuterol sulfate 1 PUFF inhaler 2 puff inhalation Q4H PRN PRN (Reason: Asthma) meloxicam 15 mg tablet 15 mg PO DAILY gabapentin 100 mg capsule 100 mg PO TID fluoxetine 20 mg capsule 20 mg PO DAILY oxycodone-acetaminophen [Percocet] 5-325 mg tablet 1 tab PO Q8H PRN (Reason: pain) 3 Days Qty: 10 0RF valacyclovir 1 gram tablet 1,000 mg PO Q8H 7 Days Qty: 21 0RF prednisone 20 mg tablet 40 mg PO DAILY 5 Days Qty: 10 0RF Primary Care Provider: Pankaj Anaya Referrals: Dr. Peter Borrego - Dermatology [Outside] - As soon as possible Pankaj Anaya MD [Primary Care Provider] - Print Language: [place] Disposition Disposition: Home, Self Care
--- NOTE | 2024-08-23 10:50 | CT_ITS ---
PROCEDURE: CTA HEAD AND NECK W/ CONTRAST 08/23/2024 REASON FOR EXAM: VISUAL DISTURBANCE HEADACHE TECHNIQUE: CTA imaging of the head and neck from the aortic arch to the skull vertex with intravenous contrast. Coronal and Sagittal reconstruction series were provided. 3D, 3D post processing, 3D reconstructions, Maximum intensity projection (MIPs) Volume rendering and Shaded surface rendering was provided. CONTRAST: Isovue 370 VOLUME: 100 mL One or more dose reduction techniques were used (e.g., Automated exposure control, adjustment of the mA and/or kV according to patient size, use of iterative reconstruction technique). RADIATION DOSE SUMMARY: CTDlvol: 65.86 mGy DLP: 1449.48 mGycm COMPARISON: No relevant prior. FINDINGS: Aortic Arch: Unremarkable. Brachiocephalic and Subclavians: Unremarkable. RIGHT Carotid: Right CCA: No significant stenoses or other abnormalities. Right ICA: No significant stenoses or other abnormalities. Right ECA: Unremarkable. LEFT Carotid: Left CCA: No significant stenoses or other abnormalities. Left ICA: No significant stenoses or other abnormalities. Left ECA: Unremarkable. Vertebrals: Codominant. RIGHT Vertebral: No abnormalities. LEFT Vertebral: No abnormalities. Anatomy: Aneurysm or avm: Not present. Anterior cerebral arteries: Unremarkable. Middle cerebral arteries: Unremarkable. Basilar artery: Unremarkable. Posterior cerebral arteries: Unremarkable. Other major branches of the posterior circulation: No abnormalities demonstrated. Major venous structures: Normal. Other findings: Neck: No lymphadenopathy. No masses lungs: Unremarkable. Bones: Multilevel spondylosis and degenerative disc disease in the cervical spine. CT/CTA Head AND Neck W/ Contrast IMPRESSION: No aneurysms or arteriovenous malformations are noted involving the major vesse ls of the head and neck. No masses or other abnormalities are demonstrated. Multilevel spondylosis and degenerative disc disease, cervical spine. No intracranial abnormalities. Reading Location: [place] [address]
[2024-08-23 10:56] LABS: Absolute Neutrophil Count 2.2 X10^3/uL (2.0-7.7); Basophil# 0.05 X10^3/uL; Basophil% 1.1 % (0-1); Eosinophil# 0.13 X10^3/uL; Eosinophils% 2.9 % (0-5); Hematocrit 40.4 % (37-47); Hemoglobin 13.5 g/dL (12.0-15.0); Lymphocyte % 33.9 % (19-41); Mean Corp Hgb Conc 33.4 g/dL (32-36); Mean Corpuscular Hgb 30.5 pg (27.0-32.0); Mean Corpuscular Volume 91.4 fL (81-99); Mean Platelet Vol. 9.4 fl (6.2-12.0); Monocyte# 0.56 X10^3/uL; Monocyte% 12.7 % (0-10); NRBC Flagged by Analyzer 0 % (0-5); Neutrophil # 2.17 X10^3/uL (2.7-7.7); Neutrophil % 49.2 % (47-70); Platelet Count 161 K/mm3 (150-450); RBC Distribution Width CV 11.8 % (11.6-14.6); RBC Distribution Width SD 39.7 fl (35.1-43.9); Red Blood Count 4.42 M/mm3 (4.2-5.4); White Blood Count 4.4 K/mm3 (4.4-11.0)
--- NOTE | 2024-08-23 11:29 | ED.RN ---
Left side of neck. Picture by Denisse Copeland RN
[2024-08-23 11:52] LABS: Anion Gap 10 (5-15); BUN 10 mg/dL (4-19); BUN/Creat Ratio 12.2 RATIO (10-20); Calcium,Total 9.1 mg/dL (7.6-11.0); Chloride 105 mmol/L (98-108); Creatinine, Serum 0.85 mg/dL (0.70-1.20); EST Glomerular Filtration Rate 85 (>60); Estimated Creatinine Clearance 86.43 ml/min (50-250); Glucose 84 mg/dL (70-99); Potassium 3.8 mmol/L (3.3-5.1); Sodium Level 140 mmol/L (133-145)
[2024-08-23 12:09] VITALS: BP 109/63; PULSE 61; RESP 16; O2SAT 98
[2024-08-23 12:40] VITALS: BP 109/63; PULSE 61; RESP 16; TEMP 36.6; O2SAT 98
--- NOTE | 2024-08-24 09:04 | ED.RN ---
Pt called and is aware that there was a different RX sent to [facility] for her.
== END 2024-08-23 12:48 | disposition home or self-care (01) ==
PROVIDERS: Emergency Provider Emergency Medicine; PCP Family Medicine; Visit Provider Emergency Medicine
DX: R21 Rash and other nonspecific skin eruption (principal); R51.9 Headache, unspecified; H53.9 Unspecified visual disturbance; J45.909 Unspecified asthma, uncomplicated; F41.9 Anxiety disorder, unspecified; F32.A Depression, unspecified; Z79.899 Other long term (current) drug therapy
CPT/HCPCS: 70496; 70498; 80048; 85025; 99282; Q9967; A4216